=== PATIENT | female | born 2000 | race Caucasian/White ===

== ENCOUNTER → 2018-09-22 | Outpatient (CLI) | payer OTHER ==
--- NOTE | 2018-09-22 13:04 | RADIOLOGY REPORT (SQ) ---
EXAM DESCRIPTION: U/S RETROPERITON (RENAL/AORTA) COMPLETED DATE/TIME: 09/22/2018 12:07 pm REASON FOR STUDY: (N20.0) CALCULUS OF KIDNEY N20.0 CALCULUS OF KIDNEY COMPARISON: None. TECHNIQUE: Dynamic and static grayscale images acquired of the kidneys and bladder and recorded on P ACS. Additional selected color Doppler and spectral images recorded. LIMITATIONS: None. FINDINGS: RIGHT KIDNEY: The right kidney measures 9.3 cm in length, normal size. Normal echogenicit y. No solid or suspicious masses. No hydronephrosis. No calcifications. LEFT KIDNEY: The left kidney measures 10.2 cm in length, normal size. Normal echogenicity. No solid or suspicious masses. No hydronephrosis. No calcifications. BLADDER: The urinary bladder is incompletely distended. OTHER FINDINGS: No other significant finding. IMPRESSION: 1. NORMAL RENAL ULTRASOUND. TECHNICAL DOCUMENTATION: JOB ID: [id number] [employer]- All Rights Reserved Reading location - IP/workstation name: [email or web address]
== END ==
LOC: RAD 11:45
PROVIDERS: ATTEND Internal Medicine
DX: N20.0 Calculus of kidney (principal)
CPT/HCPCS: 76770

== ENCOUNTER → 2018-10-06 | Outpatient (CLI) | payer OTHER ==
[2018-10-06 18:08] LABS: ALANINE AMINOTRANSFERASE 45 U/L (9-52); ALBUMIN 4.5 g/dL (3.5-5.0); ALKALINE PHOSPHATASE 57 U/L (38-126); ANION GAP 11 (5-19); ASPARTATE AMINO TRANSFERASE 34 U/L (14-36); BILIRUBIN,DIRECT 0.3 mg/dL (0.0-0.4); BILIRUBIN,TOTAL 0.4 mg/dL (0.2-1.3); BLOOD UREA NITROGEN 10 mg/dL (7-20); CALCIUM 9.5 mg/dL (8.4-10.2); CARBON DIOXIDE 23 mmol/L (22-30); CHLORIDE 105 mmol/L (98-107); GLUCOSE 81 mg/dL (75-110); POTASSIUM 4.3 mmol/L (3.6-5.0); SODIUM 138.9 mmol/L (137-145); TOTAL PROTEIN 7.5 g/dL (6.3-8.2)
== END ==
LOC: OD 15:55
PROVIDERS: ATTEND Family Medicine Geriatric Medicine
DX: N91.2 Amenorrhea, unspecified (principal); A18.01 Tuberculosis of spine
CPT/HCPCS: 36415; 80053; 84443; 84702

== ENCOUNTER 2018-10-27 12:39 | Inpatient (IN) | payer OTHER ==
[2018-10-27] MEDS ORDERED: ASPIRIN 81 MG TABLET, CHEWABLE PO ONE (14:30)
--- NOTE | 2018-10-27 14:32 | ER Document Report ---
ED Medical Screen (RME) - General Chief Complaint: Chest Pain Stated Complaint: CHEST PAIN Time Seen by Provider: 10/27/18 14:25 Primary Care Provider: EMMANUEL FRANKLIN MD [Primary Care Provider] - Follow up as needed Mode of Arrival: Ambulatory Information source: Patient Notes: This 18-year-old female with history of pots presents emergency department with chest pains that come and go on the left side of her chest. 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 She reports she noted her heart rate very high yesterday up to 180s. She went to see her dye reel operator helper (dr ackerman's office) today because she was having chest pain in the high heart rate and they sent her over here to be worked up. She denies vomiting diarrhea fever. Reports last menstrual period was last week. Reports these with the symptoms she had when she was septic and was placed in the hospital for 6 days. I have greeted and performed a rapid initial assessment of this patient. A comprehensive ED assessment and evaluation of the patient, analysis of test results and completion of the medical decision making process will be conducted by additional ED providers. Dictation of this chart was performed using voice recognition software; therefore, there may be some unintended grammatical errors. TRAVEL OUTSIDE OF THE [place] IN LAST 30 DAYS: No - Related Data Allergies/Adverse Reactions: pomegranate Allergy (Verified 10/27/18 12:51) Physical Exam - Vital signs Vitals: Temp Pulse Resp BP Pulse Ox 98.0 F 94 22 H 113/70 97 10/27/18 13:59 10/27/18 13:59 10/27/18 13:59 10/27/18 13:59 10/27/18 13:59 Course - Vital Signs Vital signs: Temp Pulse Resp BP Pulse Ox 98.0 F 94 22 H 113/70 97 10/27/18 13:59 10/27/18 13:59 10/27/18 13:59 10/27/18 13:59 10/27/18 13:59 Doctor's Discharge - Discharge Referrals: EMMANUEL FRANKLIN MD [Primary Care Provider] - Follow up as needed
--- NOTE | 2018-10-27 15:06 | RADIOLOGY REPORT (SQ) ---
EXAM DESCRIPTION: CHEST 2 VIEWS COMPLETED DATE/TIME: 10/27/2018 2:57 pm REASON FOR STUDY: cp COMPARISON: None. EXAM PARAMETERS: NUMBER OF VIEWS: two views TECHNIQUE: Digital Frontal and Lateral radiographic views of the chest acquired. RADIATION DOSE: NA LIMITATIONS: none FINDINGS: LUNGS AND PLEURA: No opacities, masses or pneumothorax. No pleural effusion. MEDIASTINUM AND HILAR STRUCTURES: No masses or contour abnormalities. HEART AND VASCULAR STRUCTURES: Heart normal size. No evidence for failure. BONES: No acute findings. HARDWARE: None in the chest. OTHER: No other significant finding. IMPRESSION: NO ACUTE RADIOGRAPHIC FINDING IN THE CHEST. TECHNICAL DOCUMENTATION: JOB ID: [id number] [place]-72 2010 [employer]- All Rights Reserved Reading location - IP/workstation name: [email or web address]
[2018-10-27 15:09] LABS: ABSOLUTE BASOPHILS # (AUTO) 0.1 10^3/uL (0.0-0.2); ABSOLUTE EOSINOPHILS # (AUTO) 0.1 10^3/uL (0.0-0.6); ABSOLUTE LYMPHOCYTES (AUTO) 2.4 10^3/uL (0.5-4.7); ABSOLUTE NEUT (AUTO) 4.7 10^3/uL (1.7-8.2); BASOPHILS % (AUTO) 0.7 % (0-2); EOSINOPHILS % (AUTO) 1.4 % (0-6); HEMATOCRIT 38.9 % (36.0-47.0); LYMPHOCYTES % (AUTO) 28.8 % (13-45); MEAN CORPUSCULAR HGB CONC 33.6 g/dL (32.0-36.0); MEAN CORPUSCULAR VOLUME 92 fl (80-97); MONOCYTES % (AUTO) 12.3 % (3-13); PLATELET COUNT 287 10^3/uL (150-450); RED BLOOD COUNT 4.21 10^6/uL (3.72-5.28); RED CELL DISTRIBUTION WIDTH 12.8 % (11.5-14.0); SEGMENTED NEUTROPHILS % (AUTO) 56.8 % (42-78); TOTAL CELLS COUNTED % (AUTO) 100 %; WHITE BLOOD COUNT 8.3 10^3/uL (4.0-10.5)
[2018-10-27 15:25] LABS: ALANINE AMINOTRANSFERASE 69 U/L (9-52); ALKALINE PHOSPHATASE 63 U/L (38-126); ANION GAP 9 (5-19); ASPARTATE AMINO TRANSFERASE 108 U/L (14-36); BILIRUBIN,DIRECT 0.2 mg/dL (0.0-0.4); BILIRUBIN,TOTAL 0.3 mg/dL (0.2-1.3); BLOOD UREA NITROGEN 13 mg/dL (7-20); CARBON DIOXIDE 25 mmol/L (22-30); CHLORIDE 105 mmol/L (98-107); GLUCOSE 87 mg/dL (75-110); POTASSIUM 4.5 mmol/L (3.6-5.0); TOTAL PROTEIN 8.3 g/dL (6.3-8.2)
[2018-10-27 15:48] LABS: CREATINE KINASE 9403 U/L (30-135)
[2018-10-27] MEDS ORDERED: NORMAL SALINE 1000 ML 1,000 ML IV ONE ×2 (18:48→21:28)
[2018-10-27 18:56] LABS: APPEARANCE,URINE SLIGHTLY-CLOUDY; BILIRUBIN,URINE NEGATIVE (NEGATIVE); COLOR,URINE YELLOW; GLUCOSE, URINE NEGATIVE (NEGATIVE); KETONES,URINE NEGATIVE (NEGATIVE); LEUKOCYTE ESTERASE,URINE SMALL (NEGATIVE); NITRITE,URINE NEGATIVE (NEGATIVE); PROTEIN,URINE NEGATIVE (NEGATIVE); URINE SPECIFIC GRAVITY 1.017; UROBILINOGEN,URINE NEGATIVE mg/dL (<2.0)
--- NOTE | 2018-10-27 21:36 | ER Document Report ---
ED General - General Chief Complaint: Chest Pain Stated Complaint: CHEST PAIN Time Seen by Provider: 10/27/18 14:25 Primary Care Provider: EMMANUEL FRANKLIN MD [Primary Care Provider] - Follow up as needed Mode of Arrival: Ambulatory TRAVEL OUTSIDE OF THE [place] IN LAST 30 DAYS: No - HPI Notes: Patient is a 18-year-old female who presents emergency department for evaluation. She states that at work yesterday, she had heart rates as high as 190. She states she knows this because of her apple watch. She does have a history of POTS. She states she has had elevated heart rates in the past. She states that also yesterday she started having chest pains. She states yesterday the pain was squeezing. Today she woke with it again. She really cannot d escribe it for me today. It is not a squeezing or aching, but she cannot really further characterize it. She states is been constant since it came on. She feels occasionally short of breath. She has had some nausea, but no diaphoresis or near syncope. Patient notes that she was diagnosed with a urinary tract infection a few days ago. She states her doctor started her on Augmentin because he wanted to "put me on something stronger." She does have a history of sepsis from a UTI in the past. - Related Data Allergies/Adverse Reactions: pomegranate Allergy (Verified 10/27/18 12:51) Home Medications: Hydrocortisone, Augmentin, Klonopin, Zoloft Past Medical History - General Information source: Patient - Social History Smoking Status: Never Smoker Frequency of alcohol use: None Drug Abuse: None Family History: Hypertension, Malignancy - Testicular cancer in brother Patient has suicidal ideation: No Patient has homicidal ideation: No - Past Medical History Cardiac Medical History: Reports: Other - POTS Renal/ Medical History: Denies: Hx Peritoneal Dialysis Review of Systems - Review of Systems Constitutional: See HPI EENT: No symptoms reported Cardiovascular: See HPI Respiratory: No symptoms reported Gastrointestinal: No symptoms reported Genitourinary: See HPI Female Genitourinary: No symptoms reported Musculoskeletal: No symptoms reported Skin: No symptoms reported Neurological/Psychological: No symptoms reported Physical Exam - Vital signs Vitals: Temp Pulse Resp BP Pulse Ox 98.0 F 94 22 H 113/70 97 10/27/18 13:59 10/27/18 13:59 10/27/18 13:59 10/27/18 13:59 10/27/18 13:59 - Notes Notes: Vital signs reviewed, please refer to chart. Head is normocephalic, atraumatic. Pupils equal round, reactive to light. Neck is supple without meningismus. Heart is regular rate and rhythm. Lungs are clear to auscultation bilaterally. Chest wall is tender to palpation. Abdomen is soft, nontender, normoactive bowel sounds throughout. Extremities without cyanosis, clubbing. Posterior calves are nontender. Peripheral pulses are equal. Skin is warm and dry. Patient is awake, alert, neurological exam is nonfocal. Course - Re-evaluation Re-evalutation: 10/27/18 21:35 Presents emergency department for evaluation. Laboratory investigations, EKG is ordered through triage. Patient is labs did reveal a markedly elevated CPK. She was given IV fluids. Despite her elevated CPK, her creatinine is normal at this time. She also has a normal troponin. She was on the monitor and her heart rate was in the 70s and 80s throughout the course of her stay. Will contact hospitalist for admission. 10/27/18 22:[address] Vick. He did ask that a CPK be ordered. Patient was given aspirin on arrival. She is placed on IV fluids. We will admit her for further care. - Vital Signs Vital signs: Temp Pulse Resp BP Pulse Ox 98.0 F 94 18 104/69 98 10/27/18 13:59 10/27/18 13:59 10/27/18 22:01 10/27/18 22:01 10/27/18 22:01 - Laboratory Result Diagrams: 10/27/18 14:51 10/27/18 14:51 Laboratory results interpreted by me: 10/27/18 10/27/18 14:30 14:51 Creatinine 0.45 L AST 108 H ALT 69 H Creatine Kinase 9403 H Total Protein 8.3 H Ur Leukocyte Esterase SMALL H Urine Ascorbic Acid 40 H - Diagnostic Test Radiology reviewed: Reports reviewed Radiology results interpreted by me: 10/27/18 21:36 Chest X-Ray 10/27/18 14:31 IMPRESSION: NO ACUTE RADIOGRAPHIC FINDING IN THE CHEST. - EKG Interpretation by Me Additional EKG results interpreted by me: 10/27/18 21:36 Sinus mechanism with a rate of 82 bpm. Normal axis and intervals, no acute ST changes concerning for ischemia or infarction. Discharge - Discharge Clinical Impression: Chest pain, Elevated CPK Condition: Stable Disposition: ADMITTED OBSERVATION Admitting Provider: Nava (Hospitalist) Unit Admitted: Telemetry Referrals: EMMANUEL FRANKLIN MD [Primary Care Provider] - Follow up as needed
[2018-10-27] MEDS: NORMAL SALINE 1000 ML 1,000 ML IV PRN ×2 (21:45→23:00)
[2018-10-27 23:16] LABS: URINE AMPHETAMINES SCREEN NEGATIVE; URINE BARBITURATES SCREEN NEGATIVE; URINE BENZODIAZEPINES SCREEN NEGATIVE; URINE COCAINE SCREEN NEGATIVE; URINE MARIJUANA (THC) SCREEN NEGATIVE; URINE METHADONE SCREEN NEGATIVE; URINE PHENCYCLIDINE SCREEN NEGATIVE
[2018-10-27] MEDS ORDERED: ZOLPIDEM TARTRATE 5 MG TABLET PO PRN (23:19)
[2018-10-27] MEDS ORDERED: ONDANSETRON HCL INJ/PF 4 MG/2 ML SDV IV PRN (23:19)
[2018-10-27] MEDS ORDERED: MAG HYDROX/AL HYDROX/SIMETH SUSP 30 ML UDCUP PO PRN (23:19)
[2018-10-27] MEDS ORDERED: MAGNESIUM HYDROXIDE SUSP 30 ML UDCUP PO PRN (23:19)
[2018-10-27] MEDS ORDERED: METOPROLOL TARTRATE PF/INJ 5 MG/5 ML SDV IV PRN (23:23)
[2018-10-27] MEDS ORDERED: ACETAMINOPHEN 325 MG TABLET PO PRN (23:23)
[2018-10-27] MEDS ORDERED: IBUPROFEN 800 MG TABLET PO PRN (23:23)
[2018-10-27] MEDS ORDERED: MORPHINE SULFATE 10 MG/ML INJ IV PRN ×4 (23:23→23:59)
[2018-10-28 00:35] LABS: TROPONIN I < 0.012 ng/mL
--- NOTE | 2018-10-28 04:07 | PDOC H&P ---
History of Present Illness Admission Date/PCP: 10/27/18 22:30 EMMANUEL FRANKLIN MD Patient complains of: Chest pain History of Present Illness: ELIZA BONDS is a 18 year old female who presented to the emergency room with a 2-day history of chest pain. She admits waxing and waning pains in her left chest beginning yesterday and continuing today. The pain has been continuous but variable since onset and is described as a squeezing tightness in her chest at its worst and a vague nondescript sensation at the present time. The pain does not radiate but has been accompanied by variable dyspnea and nausea. 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 She has been experiencing episodic rapid heart rates in the 180s and 190s consistent with her POTS disease while working in the heat. She was seen at her cardiologists (Dr. Quach) office today and was sent to the hospital for further evaluation. She admits a prior similar episode when she had sepsis in the past. She has not identified any other aggravating or ameliorating factors for her chest pain. In the ER she was found to have a normal troponin I and EKG which did not reflect myocardial ischemia or injury. She was noted to have an elevated CPK with a CPK-MB currently pending. She was subsequently admitted to observation status for further evaluation and treatment. Dr. Quach will be consulted. Past Medical History Cardiac Medical History: Reports: Other - POTS Denies: Atrial Fibrillation, Congestive Heart Failure, Coronary Artery Disease, Hypertension Pulmonary Medical History: Denies: Asthma, Chronic Obstructive Pulmonary Disease (COPD) EENT Medical History: Denies: Cataracts, Ears - Hearing aids Neurological Medical History: Reports: Other - Patient claims spina bifida Denies: Multiple Sclerosis, Seizures Endocrine Medical History: Denies: Diabetes Mellitus Type 1, Hyperthyroidism, Hypothyroidism Renal/ Medical History: Reports: Nephrolithiasis, Other - Urinary tract infections recently finished a course of antibiotics. Denies: Chronic Kidney Disease Malignancy Medical History: Reports: None GI Medical History: Denies: Cirrhosis, Crohn's Disease, Hepatitis, Ulcerative Colitis Musculoskeltal Medical History: Denies: Arthritis, Fibromyalgia, Gout Skin Medical History: Denies: Eczema, Psoriasis Psychiatric Medical History: Denies: Alcohol Dependency, Substance Abuse, Tobacco Dependency Traumatic Medical History: Reports: None Hematology: Denies: Anemia, Bleeding Tendencies Infectious Medical History: Reports: None Past Surgical History Past Surgical History: Reports: None Social History Information Source: Patient Lives with: Spouse/Significant other Smoking Status: Never Smoker Frequency of Alcohol Use: None Hx Recreational Drug Use: No Drugs: None Hx Prescription Drug Abuse: No - Advance Directive Resuscitation Status: Full Code Surrogate healthcare decision maker:: Maryann Lowe Family History Family History: Hypertension, Malignancy - Testicular cancer in brother Parental Family History Reviewed: Yes Children Family History Reviewed: No Sibling(s) Family History Reviewed.: Yes Medication/Allergy Allergies/Adverse Reactions: pomegranate Allergy (Verified 10/27/18 12:51) Review of Systems Constitutional: ABSENT: chills, fever(s) Eyes: ABSENT: visual disturbances, other - Eye pain Ears: ABSENT: hearing changes, other - Ear pain Nose, Mouth, and Throat: ABSENT: mouth pain, sore throat Cardiovascular: PRESENT: as per HPI, chest pain, dyspnea on exertion, palpitations. ABSENT: edema, orthropnea Respiratory: PRESENT: dyspnea. ABSENT: cough Gastrointestinal: PRESENT: nausea. ABSENT: abdominal pain, constipation, diarrhea, vomiting Genitourinary: ABSENT: dysuria, hematuria Musculoskeletal: ABSENT: back pain, joint swelling, muscle weakness Integumentary: ABSENT: diaphoresis, pruritus, rash Neurological: ABSENT: confusion, convulsions, focal weakness, memory loss, syncope Psychiatric: ABSENT: anxiety, depression Endocrine: ABSENT: cold intolerance, heat intolerance Hematologic/Lymphatic: ABSENT: easy bleeding, easy bruising Physical Exam Vital Signs: Temp Pulse Resp BP Pulse Ox 98.0 F 94 18 104/69 98 10/27/18 13:59 10/27/18 13:59 10/27/18 22:01 10/27/18 22:01 10/27/18 22:01 Intake & Output 10/25/18 10/26/18 10/27/18 23:59 23:59 23:59 Intake Total 1000 Balance 1000 Weight 58.5 kg General appearance: PRESENT: no acute distress, cooperative Head exam: PRESENT: atraumatic, normocephalic Eye exam: PRESENT: conjunctiva pink. ABSENT: conjunctival injection, scleral icterus Ear exam: PRESENT: normal external ear exam. ABSENT: bleeding, drainage Mouth exam: PRESENT: dry mucosa, neck supple Neck exam: ABSENT: JVD, thyromegaly, tracheal deviation Respiratory exam: PRESENT: clear to auscultation pranay, symmetrical, unlabored Cardiovascular exam: PRESENT: RRR. ABSENT: clicks, gallop, rubs Pulses: PRESENT: normal radial pulses, normal dorsalis pedis pul Vascular exam: PRESENT: normal capillary refill. ABSENT: pallor GI/Abdominal exam: PRESENT: normal bowel sounds, soft Rectal exam: PRESENT: deferred Extremities exam: ABSENT: joint swelling, pedal edema, tenderness Musculoskeletal exam: PRESENT: full ROM, normal inspection Neurological exam: PRESENT: alert, oriented to person, oriented to place, oriented to time, oriented to situation, CN II-XII grossly intact. ABSENT: motor sensory deficit Psychiatric exam: PRESENT: appropriate affect, normal mood Skin exam: PRESENT: dry, intact, warm. ABSENT: jaundice, rash, urticaria Results Laboratory Results: 10/27/18 14:51 10/27/18 14:51 10/27/18 10/27/18 10/27/18 14:30 14:51 14:51 WBC 8.3 RBC 4.21 Hgb 13.0 Hct 38.9 MCV 92 MCH 31.0 MCHC 33.6 RDW 12.8 Plt Count 287 Seg Neutrophils % 56.8 Lymphocytes % 28.8 Monocytes % 12.3 Eosinophils % 1.4 Basophils % 0.7 Absolute Neutrophils 4.7 Absolute Lymphocytes 2.4 Absolute Monocytes 1.0 Absolute Eosinophils 0.1 Absolute Basophils 0.1 Sodium 138.9 Potassium 4.5 Chloride 105 Carbon Dioxide 25 Anion Gap 9 BUN 13 Creatinine 0.45 L Est GFR ( Amer) > 60 Est GFR (Non-Af Amer) > 60 Glucose 87 Calcium 10.0 Total Bilirubin 0.3 AST 108 H ALT 69 H Alkaline Phosphatase 63 Total Protein 8.3 H Albumin 5.0 Lipase 79.2 Urine Color YELLOW Urine Appearance SLIGHTLY-CLOUDY Urine pH 7.0 Ur Specific [place] 1.017 Urine Protein NEGATIVE Urine Glucose (UA) NEGATIVE Urine Ketones NEGATIVE Urine Blood NEGATIVE Urine Nitrite NEGATIVE Ur Leukocyte Esterase SMALL H Urine WBC (Auto) 3 Urine RBC (Auto) 4 10/27/18 10/27/18 14:51 14:51 Creatine Kinase 9403 H Troponin I < 0.012 Impressions: Chest X-Ray 10/27/18 14:31 IMPRESSION: NO ACUTE RADIOGRAPHIC FINDING IN THE CHEST. Assessment and Plan - Diagnosis (1) Chest pain Qualifiers: Chest pain type: unspecified Qualified Code(s): R07.9 - Chest pain, unspecified Is this a current diagnosis for this admission?: Yes Plan: Patient will be admitted to observation placed on telemetry with a consultation for Dr. Quach's services. Additionally she will have serial cardiac enzymes and EKGs performed to evaluate her cardiac status. Further evaluation will be directed by Dr. Quach. Patient will be able to use morphine sulfate 2 to 4 mg IV every 2 hours on a as needed basis per sliding scale if needed. (2) Elevated CPK Is this a current diagnosis for this admission?: Yes Plan: Patient's elevated CPK and mild elevation of other muscle/liver enzymes might indicate a heat related or exercise related strain although the patient has no muscular symptoms of aches and pains other than her chest pain. These enzymes will be repeated on a serial basis for further evaluation. (3) POTS (postural orthostatic tachycardia syndrome) Is this a current diagnosis for this admission?: Yes Plan: Patient be continued on her usual medication. Dr. Quach has been consulted and will manage any changes to her regimen. (4) Pyuria Is this a current diagnosis for this admission?: Yes Plan: The patient will have a urine culture performed, with treatment based upon her culture results. - Time Time Spent with patient: 25-34 minutes Anticipated discharge: Home Within: within 48 hours - Inpatient Certification Based on my medical assessment, after consideration of the patient's c omorbidities, presenting symptoms, or acuity I expect that the services needed warrant INPATIENT care.: No I certify that my determination is in accordance with my understanding of Medicare's requirements for reasonable and necessary INPATIENT services [42 CFR 412.3e].: No Medical Necessity: Need Close Monitoring Due to Risk of Patient Decompensation, Need For Continuous Telemetry Monitoring
[2018-10-28 06:10] LABS: HEMATOCRIT 33.6 % (36.0-47.0); HEMOGLOBIN 11.4 g/dL (12.0-15.5); MEAN CORPUSCULAR HEMOGLOBIN 31.6 pg (27.0-33.4); MEAN CORPUSCULAR HGB CONC 33.9 g/dL (32.0-36.0); MEAN CORPUSCULAR VOLUME 93 fl (80-97); PLATELET COUNT 234 10^3/uL (150-450); RED BLOOD COUNT 3.61 10^6/uL (3.72-5.28); RED CELL DISTRIBUTION WIDTH 12.8 % (11.5-14.0); WHITE BLOOD COUNT 7.6 10^3/uL (4.0-10.5)
[2018-10-28 06:16] LABS: ALANINE AMINOTRANSFERASE 53 U/L (9-52); ALBUMIN 3.4 g/dL (3.5-5.0); ALKALINE PHOSPHATASE 45 U/L (38-126); ANION GAP 10 (5-19); ASPARTATE AMINO TRANSFERASE 105 U/L (14-36); BILIRUBIN,DIRECT 0.1 mg/dL (0.0-0.4); BILIRUBIN,TOTAL 0.1 mg/dL (0.2-1.3); BLOOD UREA NITROGEN 12 mg/dL (7-20); CALCIUM 8.5 mg/dL (8.4-10.2); CARBON DIOXIDE 20 mmol/L (22-30); CHLORIDE 111 mmol/L (98-107); GLUCOSE 89 mg/dL (75-110); POTASSIUM 4.1 mmol/L (3.6-5.0); TOTAL PROTEIN 5.9 g/dL (6.3-8.2)
[2018-10-28 06:32] LABS: TROPONIN I < 0.012 ng/mL
[2018-10-28 06:33] LABS: FREE T3 3.93 pg/mL (2.77-5.27); FREE T4 (FREE THYROXINE) 0.88 ng/dL (0.78-2.19)
[2018-10-28 06:47] LABS: THYROID STIMULATING HORMONE 1.67 uIU/mL (0.47-4.68)
[2018-10-28 07:05] LABS: CREATINE KINASE 8394 U/L (30-135)
[2018-10-28] MEDS: HEPARIN SOD (PORCINE) 5,000 UNIT/ML 1 ML VIAL SUBCUT SCH ×3 (10:26→21:17)
[2018-10-28] MEDS: RINGERS SOLUTION,LACTATED 1,000 ML IV PRN ×2 (12:09→20:29)
[2018-10-28] MEDS: FAMOTIDINE 20 MG TABLET PO SCH ×2 (12:09→21:17)
[2018-10-28] MEDS: DOCUSATE SODIUM 100 MG CAPSULE PO SCH ×2 (12:09→17:59)
[2018-10-28 13:01] LABS: TROPONIN I < 0.012 ng/mL
--- NOTE | 2018-10-28 13:03 | PDOC PROGRESS REPORT ---
Subjective Progress Note for:: 10/28/18 Subjective:: Chest pain. Patient was admitted through the emergency department yesterday with chest pain. So far EKGs and cardiac enzymes has been negative. Patient has noted some generalized body ache. She has also noted significant discomfort in the muscles on the inside aspect of her thighs. Patient claims that she exercised and worked in the gym, doing some exercise strengthening the tight muscles. Patient claims that she noted tachycardia with heart rate up to 180. She had also noted some intermittent chest pains. Patient presented to the office and the office staff told her to come to the emergency room. She was subsequently admitted. She was noted to have rhabdomyolysis but negative troponin I. Reason For Visit: CHEST PAIN Physical Exam Vital Signs: Temp Pulse Resp BP Pulse Ox 98.3 F 93 16 108/66 100 10/28/18 09:41 10/28/18 09:41 10/28/18 09:41 10/28/18 09:41 10/28/18 09:41 Intake & Output 10/27/18 10/28/18 10/29/18 06:59 06:59 06:59 Intake Total 3000 Balance 3000 Weight 58.5 kg 59.1 kg Exam: GENERAL: well-nourished and in no acute distress. Alert and oriented x3 HEAD: Atraumatic, normocephalic. EYES: FIDE, sclera anicteric, conjunctiva are normal. ENT: Moist mucous membranes. No oral ulcerations or bleeding gums noted. No obvious ear, nose or throat abnormalities noted. NECK: supple without lymphadenopathy. Trachea is central. No cervical or axillary lymphadenopathy noted. Carotids are 2+, JVD WNL LUNGS: Breath sounds clear bilaterally. No wheezes rales or rhonchi noted. No significant dullness noted on percussion. CHEST: Palpation of the chest wall shows no significant chest wall tenderness. 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 ABDOMEN: Soft, no significant tenderness appreciated, normoactive bowel sounds. No guarding, no rebound. No rigidity noted . No masses appreciated. EXTREMITIES: Pedal pulses are 1-2+, no calf tenderness noted. No clubbing or cyanosis. negative pedal edema noted NEUROLOGICAL: Focused neurological exam showed no significant neurologic deficit. Normal speech, no focal weakness appreciated. PSYCH: Normal mood, normal affect. Judgment and insight within normal limits. SKIN: No significant ecchymosis, skin is noted to be warm. MUSCULOSKELETAL EXAM: No significant acute joint swelling noted. Results Laboratory Results: 10/28/18 05:40 10/28/18 05:40 10/27/18 10/27/18 10/27/18 14:30 14:51 14:51 WBC 8.3 RBC 4.21 Hgb 13.0 Hct 38.9 MCV 92 MCH 31.0 MCHC 33.6 RDW 12.8 Plt Count 287 Seg Neutrophils % 56.8 Lymphocytes % 28.8 Monocytes % 12.3 Eosinophils % 1.4 Basophils % 0.7 Absolute Neutrophils 4.7 Absolute Lymphocytes 2.4 Absolute Monocytes 1.0 Absolute Eosinophils 0.1 Absolute Basophils 0.1 Sodium 138.9 Potassium 4.5 Chloride 105 Carbon Dioxide 25 Anion Gap 9 BUN 13 Creatinine 0.45 L Est GFR ( Amer) > 60 Est GFR (Non-Af Amer) > 60 Glucose 87 Calcium 10.0 Magnesium Total Bilirubin 0.3 AST 108 H ALT 69 H Alkaline Phosphatase 63 Total Protein 8.3 H Albumin 5.0 Lipase 79.2 TSH Free T4 Free T3 pg/mL Urine Color YELLOW Urine Appearance SLIGHTLY-CLOUDY Urine pH 7.0 Ur Specific [place] 1.017 Urine Protein NEGATIVE Urine Glucose (UA) NEGATIVE Urine Ketones NEGATIVE Urine Blood NEGATIVE Urine Nitrite NEGATIVE Ur Leukocyte Esterase SMALL H Urine WBC (Auto) 3 Urine RBC (Auto) 4 10/28/18 10/28/18 10/28/18 05:40 05:40 05:40 WBC 7.6 RBC 3.61 L Hgb 11.4 L Hct 33.6 L MCV 93 MCH 31.6 MCHC 33.9 RDW 12.8 Plt Count 234 Seg Neutrophils % Lymphocytes % Monocytes % Eosinophils % Basophils % Absolute Neutrophils Absolute Lymphocytes Absolute Monocytes Absolute Eosinophils Absolute Basophils Sodium 140.9 Potassium 4.1 Chloride 111 H Carbon Dioxide 20 L Anion Gap 10 BUN 12 Creatinine 0.46 L Est GFR ( Amer) > 60 Est GFR (Non-Af Amer) > 60 Glucose 89 Calcium 8.5 Magnesium 1.9 Total Bilirubin 0.1 L AST 105 H ALT 53 H Alkaline Phosphatase 45 Total Protein 5.9 L Albumin 3.4 L Lipase TSH 1.67 Free T4 0.88 Free T3 pg/mL 3.93 Urine Color Urine Appearance Urine pH Ur Specific [place] Urine Protein Urine Glucose (UA) Urine Ketones Urine Blood Urine Nitrite Ur Leukocyte Esterase Urine WBC (Auto) Urine RBC (Auto) 10/27/18 10/27/18 10/27/18 14:51 14:51 14:51 Creatine Kinase 9403 H CK-MB (CK-2) 24.00 H Troponin I < 0.012 10/27/18 10/27/18 10/28/18 23:47 23:47 05:40 Creatine Kinase 9234 H 8394 H CK-MB (CK-2) 16.50 H Troponin I < 0.012 10/28/18 05:40 Creatine Kinase CK-MB (CK-2) 12.10 H Troponin I < 0.012 EKG Comments: Sinus rhythm, no acute ST-T wave changes noted. Impressions: Chest X-Ray 10/27/18 14:31 IMPRESSION: NO ACUTE RADIOGRAPHIC FINDING IN THE CHEST. Assessment & Plan - Diagnosis (1) Chest pain Qualifiers: Chest pain type: unspecified Qualified Code(s): R07.9 - Chest pain, unspecified Is this a current diagnosis for this admission?: Yes (2) Elevated CPK Is this a current diagnosis for this admission?: Yes (3) POTS (postural orthostatic tachycardia syndrome) Is this a current diagnosis for this admission?: Yes (4) Pyuria Is this a current diagnosis for this admission?: Yes - Notes Notes: Chest pain felt to be noncardiac especially given paucity of risk factors and atypical nature. Patient cardiac enzymes and EKG are also negative. Will review office work-up on this patient. Patient at the medical problems are being well managed. I feel that patient could be discharged from cardiac standpoint with further evaluation planned as an outpatient. As regards POTS syndrome, Inderal is probably the best medication. Will consider tilt table test as an outpatient. This can be arranged through my office. - Time Time with patient: Greater than 35 minutes
[2018-10-28] MEDS ORDERED: POTASSIUM CLAV PO SCH (14:45)
[2018-10-28] MEDS ORDERED: AMOXICILLIN PO SCH (14:45)
[2018-10-28] MEDS ORDERED: [UNRECOGNIZED DRUG - OTHER] PO SCH (14:45)
[2018-10-28] MEDS: PROPRANOLOL HCL 10 MG TABLET PO SCH ×3 (16:11→21:08)
[2018-10-28] MEDS: SERTRALINE HCL 50 MG TABLET PO SCH (16:11)
[2018-10-28] MEDS: AMOXICILLIN TR/POT CLAVULANATE 500-125 MG TAB PO SCH ×2 (16:13→21:17)
--- NOTE | 2018-10-28 17:49 | PDOC PROGRESS REPORT ---
Subjective Progress Note for:: 10/28/18 Subjective:: ELIZA BONDS is a 18 year old female who presented to the emergency room with a 2-day history of chest pain. She admits waxing and waning pains in her left chest beginning yesterday and continuing today. The pain has been continuous but variable since onset and is described as a squeezing tightness in her chest at its worst and a vague nondescript sensation at the present time. The pain does not radiate but has been accompanied by variable dyspnea and nausea. 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 She has been experiencing episodic rapid heart rates in the 180s and 190s consistent with her POTS disease while working in the heat. She was seen at her cardiologists (Dr. Quach) office today and was sent to the hospital for further evaluation. She admits a prior similar episode when she had sepsis in the past. She has not identified any other aggravating or ameliorating factors for her chest pain. In the ER she was found to have a normal troponin I and EKG which did not reflect myocardial ischemia or injury. She was noted to have an elevated CPK with a CPK-MB currently pending. She was subsequently admitted to observation status for further evaluation and treatment. Dr. Quach will be consulted. Reason For Visit: CHEST PAIN Physical Exam Vital Signs: Temp Pulse Resp BP Pulse Ox 98.2 F 83 12 103/57 L 98 10/28/18 15:12 10/28/18 15:12 10/28/18 15:12 10/28/18 15:12 10/28/18 15:12 Intake & Output 10/27/18 10/28/18 10/29/18 06:59 06:59 06:59 Intake Total 3000 1000 Balance 3000 1000 Weight 58.5 kg 59.1 kg General appearance: PRESENT: no acute distress, well-developed, well-nourished Head exam: PRESENT: atraumatic, normocephalic Eye exam: PRESENT: conjunctiva pink, EOMI, PERRLA. ABSENT: scleral icterus Ear exam: PRESENT: normal external ear exam Mouth exam: PRESENT: moist, tongue midline Neck exam: ABSENT: carotid bruit, JVD, lymphadenopathy, thyromegaly Respiratory exam: PRESENT: clear to auscultation pranay. ABSENT: rales, rhonchi, wheezes Cardiovascular exam: PRESENT: RRR. ABSENT: diastolic murmur, rubs, systolic murmur Pulses: PRESENT: normal dorsalis pedis pul Vascular exam: PRESENT: normal capillary refill GI/Abdominal exam: PRESENT: normal bowel sounds, soft. ABSENT: distended, guarding, mass, organolmegaly, rebound, tenderness Rectal exam: PRESENT: deferred Extremities exam: PRESENT: full ROM. ABSENT: calf tenderness, clubbing, pedal edema Neurological exam: PRESENT: alert, awake, oriented to person, oriented to place, oriented to time, oriented to situation, CN II-XII grossly intact. ABSENT: motor sensory deficit Psychiatric exam: PRESENT: appropriate affect, normal mood. ABSENT: homicidal ideation, suicidal ideation Skin exam: PRESENT: dry, intact, warm. ABSENT: cyanosis, rash Results Laboratory Results: 10/28/18 05:40 10/28/18 05:40 10/27/18 10/28/18 10/28/18 14:30 05:40 05:40 WBC 7.6 RBC 3.61 L Hgb 11.4 L Hct 33.6 L MCV 93 MCH 31.6 MCHC 33.9 RDW 12.8 Plt Count 234 Sodium 140.9 Potassium 4.1 Chloride 111 H Carbon Dioxide 20 L Anion Gap 10 BUN 12 Creatinine 0.46 L Est GFR ( Amer) > 60 Est GFR (Non-Af Amer) > 60 Glucose 89 Calcium 8.5 Magnesium 1.9 Total Bilirubin 0.1 L AST 105 H ALT 53 H Alkaline Phosphatase 45 Total Protein 5.9 L Albumin 3.4 L TSH Free T4 Free T3 pg/mL Urine Color YELLOW Urine Appearance SLIGHTLY-CLOUDY Urine pH 7.0 Ur Specific Davis 1.017 Urine Protein NEGATIVE Urine Glucose (UA) NEGATIVE Urine Ketones NEGATIVE Urine Blood NEGATIVE Urine Nitrite NEGATIVE Ur Leukocyte Esterase SMALL H Urine WBC (Auto) 3 Urine RBC (Auto) 4 10/28/18 05:40 WBC RBC Hgb Hct MCV MCH MCHC RDW Plt Count Sodium Potassium Chloride Carbon Dioxide Anion Gap BUN Creatinine Est GFR ( Amer) Est GFR (Non-Af Amer) Glucose Calcium Magnesium Total Bilirubin AST ALT Alkaline Phosphatase Total Protein Albumin TSH 1.67 Free T4 0.88 Free T3 pg/mL 3.93 Urine Color Urine Appearance Urine pH Ur Specific Davis Urine Protein Urine Glucose (UA) Urine Ketones Urine Blood Urine Nitrite Ur Leukocyte Esterase Urine WBC (Auto) Urine RBC (Auto) 10/27/18 10/27/18 10/27/18 14:51 14:51 14:51 Creatine Kinase 9403 H CK-MB (CK-2) 24.00 H Troponin I < 0.012 10/27/18 10/27/18 10/28/18 23:47 23:47 05:40 Creatine Kinase 9234 H 8394 H CK-MB (CK-2) 16.50 H Troponin I < 0.012 10/28/18 10/28/18 10/28/18 05:40 12:12 12:12 Creatine Kinase 66219 H CK-MB (CK-2) 12.10 H 12.50 H Troponin I < 0.012 < 0.012 Impressions: Chest X-Ray 10/27/18 14:31 IMPRESSION: NO ACUTE RADIOGRAPHIC FINDING IN THE CHEST. Assessment and Plan - Diagnosis (1) Rhabdomyolysis Qualifiers: Rhabdomyolysis type: non-traumatic Qualified Code(s): M62.82 - Rhabdomyolysis Is this a current diagnosis for this admission?: Yes Plan: Continue IV fluids. Trend CK. Monitor kidney function. (2) UTI (urinary tract infection) Is this a current diagnosis for this admission?: Yes Plan: Partially treated as outpatient. Restart home meds. (3) History of panic attacks Is this a current diagnosis for this admission?: Yes Plan: Restart home meds. (4) Depression Is this a current diagnosis for this admission?: Yes Plan: Denies any suicidal or homicidal ideation. Restart home meds. (5) Elevated CPK Is this a current diagnosis for this admission?: Yes Plan: Patient's elevated CPK and mild elevation of other muscle/liver enzymes might indicate a heat related or exercise related strain although the patient has no muscular symptoms of aches and pains other than her chest pain. These enzymes will be repeated on a serial basis for further evaluation. (6) POTS (postural orthostatic tachycardia syndrome) Is this a current diagnosis for this admission?: Yes Plan: Patient be continued on her usual medication. Dr. Quach has been consulted and will manage any changes to her regimen.
--- NOTE | 2018-10-28 19:11 | EKG REPORT ---
SEVERITY:- NORMAL ECG - SINUS RHYTHM : Confirmed by: Rodrigo Horan MD 28-Oct-2018 19:10:46
--- NOTE | 2018-10-28 19:11 | EKG REPORT ---
SEVERITY:- NORMAL ECG - SINUS RHYTHM : Confirmed by: Rodrigo Horan MD 28-Oct-2018 19:10:35
[2018-10-28] MEDS: CLONAZEPAM 1 MG TABLET PO PRN (19:14)
[2018-10-28] MEDS: FLUDROCORTISONE ACETATE 0.1 MG TABLET PO SCH ×2 (19:14→21:23)
[2018-10-29] MEDS: PROPRANOLOL HCL 10 MG TABLET PO SCH ×3 (05:16→21:36)
[2018-10-29] MEDS: AMOXICILLIN TR/POT CLAVULANATE 500-125 MG TAB PO SCH (05:57)
[2018-10-29] MEDS: HEPARIN SOD (PORCINE) 5,000 UNIT/ML 1 ML VIAL SUBCUT SCH ×3 (05:58→21:29)
[2018-10-29 07:45] LABS: ANION GAP 7 (5-19); BLOOD UREA NITROGEN 8 mg/dL (7-20); CALCIUM 9.2 mg/dL (8.4-10.2); CARBON DIOXIDE 26 mmol/L (22-30); CHLORIDE 105 mmol/L (98-107); GLUCOSE 84 mg/dL (75-110); POTASSIUM 3.9 mmol/L (3.6-5.0)
[2018-10-29 08:21] LABS: CREATINE KINASE 7567 U/L (30-135)
[2018-10-29] MEDS: FLUDROCORTISONE ACETATE 0.1 MG TABLET PO SCH ×2 (09:50→21:30)
[2018-10-29] MEDS: FAMOTIDINE 20 MG TABLET PO SCH ×2 (09:53→21:30)
[2018-10-29] MEDS: SERTRALINE HCL 50 MG TABLET PO SCH (09:53)
[2018-10-29] MEDS: DOCUSATE SODIUM 100 MG CAPSULE PO SCH ×2 (09:53→17:13)
[2018-10-29] MEDS: CLONAZEPAM 1 MG TABLET PO PRN ×2 (09:53→21:38)
[2018-10-29] MEDS ORDERED: BENZOCAINE/MENTHOL SORE THROAT LOZENGE BUCCAL PRN (14:17)
[2018-10-29] MEDS ORDERED: BENZOCAINE/MENTHOL SORE THROAT LOZENGE BUCCAL ONE (14:17)
[2018-10-29] MEDS ORDERED: CEPHALEXIN 500 MG CAPSULE PO ONE (15:00)
[2018-10-29] MEDS: NORMAL SALINE 1000 ML 1,000 ML IV PRN ×2 (17:13→21:28)
--- NOTE | 2018-10-29 18:16 | PDOC PROGRESS REPORT ---
Subjective Progress Note for:: 10/29/18 Subjective:: ELIZA BONDS is a 18 year old female who presented to the emergency room with a 2-day history of chest pain. She admits waxing and waning pains in her left chest beginning yesterday and continuing today. The pain has been continuous but variable since onset and is described as a squeezing tightness in her chest at its worst and a vague nondescript sensation at the present time. The pain does not radiate but has been accompanied by variable dyspnea and nausea. 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 She has been experiencing episodic rapid heart rates in the 180s and 190s consistent with her POTS disease while working in the heat. She was seen at her cardiologists (Dr. Quach) office today and was sent to the hospital for further evaluation. She admits a prior similar episode when she had sepsis in the past. She has not identified any other aggravating or ameliorating factors for her chest pain. In the ER she was found to have a normal troponin I and EKG which did not reflect myocardial ischemia or injury. She was noted to have an elevated CPK with a CPK-MB currently pending. She was subsequently admitted to observation status for further evaluation and treatment. Dr. Quach will be consulted. 10/29/2018. No acute events overnight, patient complains of generalized and sore muscles, patient ambulatory, p.o. tolerant, having normal bowel and bladder movements. He denies any fever, shortness of breath, chest pain, nausea, vomiting, diarrhea, constipation or any urinary symptoms. Reason For Visit: RHABDOMYOLYSIS,POTS,CHEST PAIN,ELEVATED CPK Physical Exam Vital Signs: Temp Pulse Resp BP Pulse Ox 99.2 F 128 H 16 106/71 98 10/29/18 12:02 10/29/18 14:00 10/29/18 12:02 10/29/18 12:02 10/29/18 12:02 Intake & Output 10/28/18 10/29/18 10/30/18 06:59 06:59 06:59 Intake Total 3000 3650 120 Balance 3000 3650 120 Weight 58.5 kg 59.2 kg General appearance: PRESENT: no acute distress, well-developed, well-nourished Head exam: PRESENT: atraumatic, normocephalic Eye exam: PRESENT: conjunctiva pink, EOMI, PERRLA. ABSENT: scleral icterus Ear exam: PRESENT: normal external ear exam Mouth exam: PRESENT: moist, tongue midline Neck exam: ABSENT: carotid bruit, JVD, lymphadenopathy, thyromegaly Respiratory exam: PRESENT: clear to auscultation pranay. ABSENT: rales, rhonchi, wheezes Cardiovascular exam: PRESENT: RRR. ABSENT: diastolic murmur, rubs, systolic murmur Pulses: PRESENT: normal dorsalis pedis pul Vascular exam: PRESENT: normal capillary refill GI/Abdominal exam: PRESENT: normal bowel sounds, soft. ABSENT: distended, guarding, mass, organolmegaly, rebound, tenderness Rectal exam: PRESENT: deferred Extremities exam: PRESENT: full ROM. ABSENT: calf tenderness, clubbing, pedal edema Neurological exam: PRESENT: alert, awake, oriented to person, oriented to place, oriented to time, oriented to situation, CN II-XII grossly intact. ABSENT: motor sensory deficit Psychiatric exam: PRESENT: appropriate affect, normal mood. ABSENT: homicidal ideation, suicidal ideation Skin exam: PRESENT: dry, intact, warm. ABSENT: cyanosis, rash Results Laboratory Results: 10/28/18 05:40 10/29/18 06:34 10/29/18 06:34 Sodium 138.2 Potassium 3.9 Chloride 105 Carbon Dioxide 26 Anion Gap 7 BUN 8 Creatinine 0.45 L Est GFR ( Amer) > 60 Est GFR (Non-Af Amer) > 60 Glucose 84 Calcium 9.2 10/27/18 10/27/18 10/27/18 14:51 14:51 14:51 Creatine Kinase 9403 H CK-MB (CK-2) 24.00 H Troponin I < 0.012 10/27/18 10/27/18 10/28/18 23:47 23:47 05:40 Creatine Kinase 9234 H 8394 H CK-MB (CK-2) 16.50 H Troponin I < 0.012 10/28/18 10/28/18 10/28/18 05:40 12:12 12:12 Creatine Kinase 84856 H CK-MB (CK-2) 12.10 H 12.50 H Troponin I < 0.012 < 0.012 10/29/18 06:34 Creatine Kinase 7567 H CK-MB (CK-2) Troponin I Impressions: Chest X-Ray 10/27/18 14:31 IMPRESSION: NO ACUTE RADIOGRAPHIC FINDING IN THE CHEST. Assessment and Plan - Diagnosis (1) Rhabdomyolysis Qualifiers: Rhabdomyolysis type: non-traumatic Qualified Code(s): M62.82 - Rhabdomyolysis Is this a current diagnosis for this admission?: Yes Plan: Nontraumatic. Likely due to recent extensive work-up. 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 Denies any intense workout session or dehydration. CK 7000 today. Continue IV fluids. Trend CK. Monitor kidney function. (2) UTI (urinary tract infection) Is this a current diagnosis for this admission?: Yes Plan: Partially treated as outpatient. Due to Klebsiella. As per patient she got a call from her PCP stating that her urine culture came back positive for Klebsiella and it was sensitive to Keflex. Day 2 of p.o. antibiotics. Received 1 day of Augmentin. Day 1/5 of p.o. Keflex. (3) History of panic attacks Is this a current diagnosis for this admission?: Yes Plan: Restart home meds. (4) Depression Is this a current diagnosis for this admission?: Yes Plan: Denies any suicidal or homicidal ideation. Restart home meds. (5) POTS (postural orthostatic tachycardia syndrome) Is this a current diagnosis for this admission?: Yes Plan: Patient was diagnosed with paroxysmal orthostatic tachycardia syndrome by her stockroom inventory clerk Dr. Craig in [place]. She has been taking fludrocortisone with good control of her POTS. Patient states that beta-blockers make her feel sick. Refusing to take propranolol which was started by Dr. Quach stockroom inventory clerk. Continue fludrocortisone. Monitor volume status. Maintain euvolemia. Outpatient follow-up with Dr. Quach stockroom inventory clerk.
[2018-10-29] MEDS ORDERED: CEPHALEXIN 500 MG CAPSULE PO SCH (22:00)
[2018-10-30] MEDS: NORMAL SALINE 1000 ML 1,000 ML IV PRN ×5 (03:09→22:00)
[2018-10-30] MEDS: PROPRANOLOL HCL 10 MG TABLET PO SCH ×3 (05:03→21:33)
[2018-10-30] MEDS: HEPARIN SOD (PORCINE) 5,000 UNIT/ML 1 ML VIAL SUBCUT SCH ×3 (05:09→22:03)
[2018-10-30 06:21] LABS: ANION GAP 9 (5-19); BLOOD UREA NITROGEN 12 mg/dL (7-20); CALCIUM 8.6 mg/dL (8.4-10.2); CARBON DIOXIDE 22 mmol/L (22-30); CHLORIDE 108 mmol/L (98-107); GLUCOSE 100 mg/dL (75-110)
[2018-10-30 06:28] LABS: CREATINE KINASE 3086 U/L (30-135)
[2018-10-30] MEDS: SERTRALINE HCL 50 MG TABLET PO SCH (10:12)
[2018-10-30] MEDS: DOCUSATE SODIUM 100 MG CAPSULE PO SCH ×2 (10:12→18:34)
[2018-10-30] MEDS: FLUDROCORTISONE ACETATE 0.1 MG TABLET PO SCH ×2 (10:12→22:03)
[2018-10-30] MEDS: FAMOTIDINE 20 MG TABLET PO SCH ×2 (10:12→22:03)
[2018-10-30] MEDS: CEPHALEXIN 500 MG CAPSULE PO SCH ×2 (10:14→22:03)
--- NOTE | 2018-10-30 12:03 | PDOC PROGRESS REPORT ---
Subjective Progress Note for:: 10/30/18 Subjective:: ELIZA BONDS is a 18 year old female who presented to the emergency room with a 2-day history of chest pain. She admits waxing and waning pains in her left chest beginning yesterday and continuing today. The pain has been continuous but variable since onset and is described as a squeezing tightness in her chest at its worst and a vague nondescript sensation at the present time. The pain does not radiate but has been accompanied by variable dyspnea and nausea. 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 She has been experiencing episodic rapid heart rates in the 180s and 190s consistent with her POTS disease while working in the heat. She was seen at her cardiologists (Dr. Quach) office today and was sent to the hospital for further evaluation. She admits a prior similar episode when she had sepsis in the past. She has not identified any other aggravating or ameliorating factors for her chest pain. In the ER she was found to have a normal troponin I and EKG which did not reflect myocardial ischemia or injury. She was noted to have an elevated CPK with a CPK-MB currently pending. She was subsequently admitted to observation status for further evaluation and treatment. Dr. Quach will be consulted. 10/29/2018. No acute events overnight, patient complains of generalized and sore muscles, patient ambulatory, p.o. tolerant, having normal bowel and bladder movements. He denies any fever, shortness of breath, chest pain, nausea, vomiting, diarrhea, constipation or any urinary symptoms. 10/30/2018. No acute events overnight. Sore throat has resolved. Ambulatory, weakness has improved, denies any fever, chills, nausea, vomiting, diarrhea, constipation or any urinary symptoms. Reason For Visit: RHABDOMYOLYSIS,POTS,CHEST PAIN,ELEVATED CPK Physical Exam Vital Signs: Temp Pulse Resp BP Pulse Ox 97.6 F 81 12 89/53 L 100 10/30/18 07:30 10/30/18 07:30 10/30/18 07:30 10/30/18 07:30 10/30/18 07:30 Intake & Output 10/29/18 10/30/18 10/31/18 06:59 06:59 06:59 Intake Total 3650 2990 1000 Balance 3650 2990 1000 Weight 59.2 kg 59.3 kg General appearance: PRESENT: no acute distress, well-developed, well-nourished Head exam: PRESENT: atraumatic, normocephalic Eye exam: PRESENT: conjunctiva pink, EOMI, PERRLA. ABSENT: scleral icterus Ear exam: PRESENT: normal external ear exam Mouth exam: PRESENT: moist, tongue midline Neck exam: ABSENT: carotid bruit, JVD, lymphadenopathy, thyromegaly Respiratory exam: PRESENT: clear to auscultation pranay. ABSENT: rales, rhonchi, wheezes Cardiovascular exam: PRESENT: RRR. ABSENT: diastolic murmur, rubs, systolic mu rmur Pulses: PRESENT: normal dorsalis pedis pul Vascular exam: PRESENT: normal capillary refill GI/Abdominal exam: PRESENT: normal bowel sounds, soft. ABSENT: distended, guarding, mass, organolmegaly, rebound, tenderness Rectal exam: PRESENT: deferred Extremities exam: PRESENT: full ROM. ABSENT: calf tenderness, clubbing, pedal edema Neurological exam: PRESENT: alert, awake, oriented to person, oriented to place, oriented to time, oriented to situation, CN II-XII grossly intact. ABSENT: motor sensory deficit Psychiatric exam: PRESENT: appropriate affect, normal mood. ABSENT: homicidal ideation, suicidal ideation Skin exam: PRESENT: dry, intact, warm. ABSENT: cyanosis, rash Results Laboratory Results: 10/28/18 05:40 10/30/18 05:34 10/30/18 05:34 Sodium 138.7 Potassium 4.0 Chloride 108 H Carbon Dioxide 22 Anion Gap 9 BUN 12 Creatinine 0.44 L Est GFR ( Amer) > 60 Est GFR (Non-Af Amer) > 60 Glucose 100 Calcium 8.6 10/27/18 14:30 Clean Catch Midstream Urine Culture - Final NO GROWTH 2 DAYS 10/27/18 10/27/18 10/27/18 14:51 14:51 14:51 Creatine Kinase 9403 H CK-MB (CK-2) 24.00 H Troponin I < 0.012 10/27/18 10/27/18 10/28/18 23:47 23:47 05:40 Creatine Kinase 9234 H 8394 H CK-MB (CK-2) 16.50 H Troponin I < 0.012 10/28/18 10/28/18 10/28/18 05:40 12:12 12:12 Creatine Kinase 27743 H CK-MB (CK-2) 12.10 H 12.50 H Troponin I < 0.012 < 0.012 10/29/18 10/30/18 06:34 05:34 Creatine Kinase 7567 H 3086 H CK-MB (CK-2) Troponin I Impressions: Chest X-Ray 10/27/18 14:31 IMPRESSION: NO ACUTE RADIOGRAPHIC FINDING IN THE CHEST. Assessment and Plan - Diagnosis (1) Rhabdomyolysis Qualifiers: Rhabdomyolysis type: non-traumatic Qualified Code(s): M62.82 - Rhabdomyolysis Is this a current diagnosis for this admission?: Yes Plan: Nontraumatic. Likely due to recent extensive work-up. 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 Denies any intense workout session or dehydration. CK 3080 today. Continue IV fluids. Trend CK. Monitor kidney function. (2) UTI (urinary tract infection) Is this a current diagnosis for this admission?: Yes Plan: Partially treated as outpatient. Due to Klebsiella. As per patient she got a call from her PCP stating that her urine culture came back positive for Klebsiella and it was sensitive to Keflex. Day 3 of p.o. antibiotics. Received 1 day of Augmentin. Day 2/5 of p.o. Keflex. (3) History of panic attacks Is this a current diagnosis for this admission?: Yes Plan: Restart home meds. (4) Depression Is this a current diagnosis for this admission?: Yes Plan: Denies any suicidal or homicidal ideation. Restart home meds. (5) POTS (postural orthostatic tachycardia syndrome) Is this a current diagnosis for this admission?: Yes Plan: Patient was diagnosed with paroxysmal orthostatic tachycardia syndrome by her director graphics Dr. Craig in [place]. Thyroid function test WNL. She has been taking fludrocortisone with good control of her POTS. Patient states that beta-blockers make her feel sick. Refusing to take propranolol which was started by Dr. Quach director graphics. Continue fludrocortisone. Monitor volume status. Maintain euvolemia. Outpatient follow-up with Dr. Quach director graphics.
--- NOTE | 2018-10-30 12:53 | PDOC PROGRESS REPORT ---
Subjective Progress Note for:: 10/29/18 Subjective:: Chest pain. Patient was admitted through the emergency department yesterday with chest pain. So far EKGs and cardiac enzymes has been negative. Patient has noted some generalized body ache. She has also noted significant discomfort in the muscles on the inside aspect of her thighs. Patient claims that she exercised and worked in the gym, doing some exercise strengthening the tight muscles. Patient claims that she noted tachycardia with heart rate up to 180. She had also noted some intermittent chest pains. Patient presented to the office and the office staff told her to come to the emergency room. She was subsequently admitted. She was noted to have rhabdomyolysis but negative troponin I. October 29, 2018: Patient seems to be doing well. She had some episode of chest pain but associated with burning sensation in the throat. Lawrence to be related to GI reflux. Patient does have a history of it. Reason For Visit: RHABDOMYOLYSIS,POTS,CHEST PAIN,ELEVATED CPK Physical Exam Vital Signs: Temp Pulse Resp BP Pulse Ox 99.2 F 93 16 106/71 98 10/29/18 12:02 10/29/18 19:00 10/29/18 12:02 10/29/18 12:02 10/29/18 12:02 Intake & Output 10/28/18 10/29/18 10/30/18 06:59 06:59 06:59 Intake Total 3000 3650 1120 Balance 3000 3650 1120 Weight 58.5 kg 59.2 kg Exam: GENERAL: well-nourished and in no acute distress. Alert and oriented x3 HEAD: Atraumatic, normocephalic. EYES: FIDE, sclera anicteric, conjunctiva are normal. ENT: Moist mucous membranes. No oral ulcerations or bleeding gums noted. No obvious ear, nose or throat abnormalities noted. NECK: supple without lymphadenopathy. Trachea is central. No cervical or axillary lymphadenopathy noted. Carotids are 2+, JVD WNL LUNGS: Breath sounds clear bilaterally. No wheezes rales or rhonchi noted. No significant dullness noted on percussion. CHEST: Palpation of the chest wall shows mild chest wall tenderness. 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 ABDOMEN: Soft, no significant tenderness appreciated, normoactive bowel sounds. No guarding, no rebound. No rigidity noted . No masses appreciated. EXTREMITIES: Pedal pulses are 1-2+, no calf tenderness noted. No clubbing or cyanosis. negative pedal edema noted NEUROLOGICAL: Focused neurological exam showed no significant neurologic deficit. Normal speech, no focal weakness appreciated. PSYCH: Normal mood, normal affect. Judgment and insight within normal limits. SKIN: No significant ecchymosis, skin is noted to be warm. MUSCULOSKELETAL EXAM: No significant acute joint swelling noted. Patient also noted to have tender tight muscles. Results Laboratory Results: 10/28/18 05:40 10/29/18 06:34 10/29/18 06:34 Sodium 138.2 Potassium 3.9 Chloride 105 Carbon Dioxide 26 Anion Gap 7 BUN 8 Creatinine 0.45 L Est GFR ( Amer) > 60 Est GFR (Non-Af Amer) > 60 Glucose 84 Calcium 9.2 10/27/18 10/27/18 10/27/18 14:51 14:51 14:51 Creatine Kinase 9403 H CK-MB (CK-2) 24.00 H Troponin I < 0.012 10/27/18 10/27/18 10/28/18 23:47 23:47 05:40 Creatine Kinase 9234 H 8394 H CK-MB (CK-2) 16.50 H Troponin I < 0.012 10/28/18 10/28/18 10/28/18 05:40 12:12 12:12 Creatine Kinase 05930 H CK-MB (CK-2) 12.10 H 12.50 H Troponin I < 0.012 < 0.012 10/29/18 06:34 Creatine Kinase 7567 H CK-MB (CK-2) Troponin I Impressions: Chest X-Ray 10/27/18 14:31 IMPRESSION: NO ACUTE RADIOGRAPHIC FINDING IN THE CHEST. Assessment & Plan - Diagnosis (1) Chest pain Qualifiers: Chest pain type: unspecified Qualified Code(s): R07.9 - Chest pain, unspecified Is this a current diagnosis for this admission?: Yes (2) Elevated CPK Is this a current diagnosis for this admission?: Yes (3) POTS (postural orthostatic tachycardia syndrome) Is this a current diagnosis for this admission?: Yes (4) Pyuria Is this a current diagnosis for this admission?: Yes - Notes Notes: Chest pain: Lawrence to be noncardiac possibly related to GI reflux. Will place patient on empiric proton pump inhibitor. Elevated CPK: Due to rhabdomyolysis. Cause not clear. If there is persistent elevation of total CK, consider myopathic illness. Postural orthostatic tachycardia syndrome: Currently stable. Will gradually increase but metoprolol or Inderal therapy. Pyuria: Currently stable. - Time Time with patient: Greater than 35 minutes - More than 50% of the time spent coordinating care, discussing management plans with involved caregivers. Management plans discussed with involved personnels. Medical decision making was of moderate to high complexity, patient's has multiple comorbidities. Medications reviewed and adjusted accordingly: Yes
--- NOTE | 2018-10-30 19:27 | PDOC PROGRESS REPORT ---
Subjective Progress Note for:: 10/30/18 Subjective:: Chest pain. Patient was admitted through the emergency department yesterday with chest pain. So far EKGs and cardiac enzymes has been negative. Patient has noted some generalized body ache. She has also noted significant discomfort in the muscles on the inside aspect of her thighs. Patient claims that she exercised and worked in the gym, doing some exercise strengthening the tight muscles. Patient claims that she noted tachycardia with heart rate up to 180. She had also noted some intermittent chest pains. Patient presented to the office and the office staff told her to come to the emergency room. She was subsequently admitted. She was noted to have rhabdomyolysis but negative troponin I. October 29, 2018: Patient seems to be doing well. She had some episode of chest pain but associated with burning sensation in the throat. [place] to be related to GI reflux. Patient does have a history of it. October 30, 2018: Patient is doing well. She has been noted to have somewhat of a low blood pressure but asymptomatic. Patient has been declining beta-wyatt therapy claiming side effects. Patient claims to be getting Florinef. Patient had no recurrence of chest pain. Patient is on H2 wyatt. Reason For Visit: RHABDOMYOLYSIS,POTS,CHEST PAIN,ELEVATED CPK Physical Exam Vital Signs: Temp Pulse Resp BP Pulse Ox 97.6 F 81 12 89/53 L 100 10/30/18 07:30 10/30/18 07:30 10/30/18 07:30 10/30/18 07:30 10/30/18 07:30 Intake & Output 10/29/18 10/30/18 10/31/18 06:59 06:59 06:59 Intake Total 3650 2990 1999 Balance 3650 2990 1999 Weight 59.2 kg 59.3 kg Exam: GENERAL: well-nourished and in no acute distress. Alert and oriented x3 HEAD: Atraumatic, normocephalic. EYES: FIDE, sclera anicteric, conjunctiva are normal. ENT: Moist mucous membranes. No oral ulcerations or bleeding gums noted. No obvious ear, nose or throat abnormalities noted. NECK: supple without lymphadenopathy. Trachea is central. No cervical or axillary lymphadenopathy noted. Carotids are 2+, JVD WNL LUNGS: Breath sounds clear bilaterally. No wheezes rales or rhonchi noted. No significant dullness noted on percussion. CHEST: Palpation of the chest wall shows no significant chest wall tenderness. 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 ABDOMEN: Soft, no significant tenderness appreciated, normoactive bowel sounds. No guarding, no rebound. No rigidity noted . No masses appreciated. EXTREMITIES: Pedal pulses are 1-2+, no calf tenderness noted. No clubbing or cyanosis. negative pedal edema noted NEUROLOGICAL: Focused neurological exam showed no significant neurologic deficit. Normal speech, no focal weakness appreciated. PSYCH: Normal mood, normal affect. Judgment and insight within normal limits. SKIN: No significant ecchymosis, skin is noted to be warm. MUSCULOSKELETAL EXAM: No significant acute joint swelling noted. Results Laboratory Results: 10/28/18 05:40 10/30/18 05:34 10/30/18 05:34 Sodium 138.7 Potassium 4.0 Chloride 108 H Carbon Dioxide 22 Anion Gap 9 BUN 12 Creatinine 0.44 L Est GFR ( Amer) > 60 Est GFR (Non-Af Amer) > 60 Glucose 100 Calcium 8.6 10/27/18 14:30 Clean Catch Midstream Urine Culture - Final NO GROWTH 2 DAYS 10/27/18 10/27/18 10/27/18 14:51 14:51 14:51 Creatine Kinase 9403 H CK-MB (CK-2) 24.00 H Troponin I < 0.012 10/27/18 10/27/18 10/28/18 23:47 23:47 05:40 Creatine Kinase 9234 H 8394 H CK-MB (CK-2) 16.50 H Troponin I < 0.012 10/28/18 10/28/18 10/28/18 05:40 12:12 12:12 Creatine Kinase 79221 H CK-MB (CK-2) 12.10 H 12.50 H Troponin I < 0.012 < 0.012 10/29/18 10/30/18 06:34 05:34 Creatine Kinase 7567 H 3086 H CK-MB (CK-2) Troponin I Impressions: Chest X-Ray 10/27/18 14:31 IMPRESSION: NO ACUTE RADIOGRAPHIC FINDING IN THE CHEST. Assessment & Plan - Diagnosis (1) Chest pain Qualifiers: Chest pain type: unspecified Qualified Code(s): R07.9 - Chest pain, unspecified Is this a current diagnosis for this admission?: Yes (2) Elevated CPK Is this a current diagnosis for this admission?: Yes (3) POTS (postural orthostatic tachycardia syndrome) Is this a current diagnosis for this admission?: Yes (4) Pyuria Is this a current diagnosis for this admission?: Yes - Notes Notes: Lab data shows resolving CPK elevations. Chest pain has resolved Patient to follow-up in the office with stress test to be scheduled when rhabdomyolysis has resolved. Patient also to have a 2D echo as an outpatient. - Time Time with patient: Greater than 35 minutes - More than 50% of the time spent coordinating care, discussing management plans with involved caregivers. Management plans discussed with involved personnels. Medical decision making was of moderate to high complexity, patient's has multiple comorbidities. Medications reviewed and adjusted accordingly: Yes
[2018-10-30] MEDS: CLONAZEPAM 1 MG TABLET PO PRN (22:02)
[2018-10-31 05:24] LABS: ANION GAP 9 (5-19); BLOOD UREA NITROGEN 8 mg/dL (7-20); CALCIUM 9.3 mg/dL (8.4-10.2); CARBON DIOXIDE 24 mmol/L (22-30); CHLORIDE 106 mmol/L (98-107); CREATINE KINASE 1450 U/L (30-135); GLUCOSE 90 mg/dL (75-110); POTASSIUM 4.1 mmol/L (3.6-5.0)
[2018-10-31] MEDS: PROPRANOLOL HCL 10 MG TABLET PO SCH ×3 (06:33→22:44)
[2018-10-31] MEDS: HEPARIN SOD (PORCINE) 5,000 UNIT/ML 1 ML VIAL SUBCUT SCH ×3 (06:33→22:44)
[2018-10-31] MEDS: DOCUSATE SODIUM 100 MG CAPSULE PO SCH ×2 (09:38→17:28)
[2018-10-31] MEDS: SERTRALINE HCL 50 MG TABLET PO SCH (09:42)
[2018-10-31] MEDS: CLONAZEPAM 1 MG TABLET PO PRN ×2 (09:42→22:52)
[2018-10-31] MEDS: FLUDROCORTISONE ACETATE 0.1 MG TABLET PO SCH ×2 (09:42→22:44)
[2018-10-31] MEDS: CEPHALEXIN 500 MG CAPSULE PO SCH ×2 (09:43→22:44)
[2018-10-31] MEDS: FAMOTIDINE 20 MG TABLET PO SCH ×2 (09:43→22:44)
[2018-10-31] MEDS: NORMAL SALINE 1000 ML 1,000 ML IV PRN ×2 (09:48→22:46)
--- NOTE | 2018-10-31 19:17 | PDOC PROGRESS REPORT ---
Subjective Progress Note for:: 10/31/18 Subjective:: ELIZA BONDS is a 18 year old female who presented to the emergency room with a 2-day history of chest pain. She admits waxing and waning pains in her left chest beginning yesterday and continuing today. The pain has been continuous but variable since onset and is described as a squeezing tightness in her chest at its worst and a vague nondescript sensation at the present time. The pain does not radiate but has been accompanied by variable dyspnea and nausea. 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 She has been experiencing episodic rapid heart rates in the 180s and 190s consistent with her POTS disease while working in the heat. She was seen at her cardiologists (Dr. Quach) office today and was sent to the hospital for further evaluation. She admits a prior similar episode when she had sepsis in the past. She has not identified any other aggravating or ameliorating factors for her chest pain. In the ER she was found to have a normal troponin I and EKG which did not reflect myocardial ischemia or injury. She was noted to have an elevated CPK with a CPK-MB currently pending. She was subsequently admitted to observation status for further evaluation and treatment. Dr. Quach will be consulted. 10/29/2018. No acute events overnight, patient complains of generalized and sore muscles, patient ambulatory, p.o. tolerant, having normal bowel and bladder movements. He denies any fever, shortness of breath, chest pain, nausea, vomiting, diarrhea, constipation or any urinary symptoms. 10/30/2018. No acute events overnight. Sore throat has resolved. Ambulatory, weakness has improved, denies any fever, chills, nausea, vomiting, diarrhea, constipation or any urinary symptoms. Reason For Visit: RHABDOMYOLYSIS,POTS,CHEST PAIN,ELEVATED CPK Physical Exam Vital Signs: Temp Pulse Resp BP Pulse Ox 99.1 F 98 16 100/57 L 96 10/31/18 15:31 10/31/18 15:31 10/31/18 15:31 10/31/18 15:31 10/31/18 15:31 Intake & Output 10/30/18 10/31/18 11/01/18 06:59 06:59 06:59 Intake Total 2990 5950 600 Balance 2990 5950 600 Weight 59.3 kg 60 kg General appearance: PRESENT: no acute distress, well-developed, well-nourished Head exam: PRESENT: atraumatic, normocephalic Eye exam: PRESENT: conjunctiva pink, EOMI, PERRLA. ABSENT: scleral icterus Ear exam: PRESENT: normal external ear exam Mouth exam: PRESENT: moist, tongue midline Neck exam: ABSENT: carotid bruit, JVD, lymphadenopathy, thyromegaly Respiratory exam: PRESENT: clear to auscultation pranay. ABSENT: rales, rhonchi, wheezes Cardiovascular exam: PRESENT: RRR. ABSENT: diastolic murmur, rubs, systolic murmur Pulses: PRESENT: normal dorsalis pedis pul Vascular exam: PRESENT: normal capillary refill GI/Abdominal exam: PRESENT: normal bowel sounds, soft. ABSENT: distended, guarding, mass, organolmegaly, rebound, tenderness Rectal exam: PRESENT: deferred Extremities exam: PRESENT: full ROM. ABSENT: calf tenderness, clubbing, pedal edema Neurological exam: PRESENT: alert, awake, oriented to person, oriented to place, oriented to time, oriented to situation, CN II-XII grossly intact. ABSENT: motor sensory deficit Psychiatric exam: PRESENT: appropriate affect, normal mood. ABSENT: homicidal ideation, suicidal ideation Skin exam: PRESENT: dry, intact, warm. ABSENT: cyanosis, rash Results Laboratory Results: 10/28/18 05:40 10/31/18 04:39 10/31/18 04:39 Sodium 138.9 Potassium 4.1 Chloride 106 Carbon Dioxide 24 Anion Gap 9 BUN 8 Creatinine 0.49 L Est GFR ( Amer) > 60 Est GFR (Non-Af Amer) > 60 Glucose 90 Calcium 9.3 10/27/18 10/27/18 10/27/18 14:51 14:51 14:51 Creatine Kinase 9403 H CK-MB (CK-2) 24.00 H Troponin I < 0.012 10/27/18 10/27/18 10/28/18 23:47 23:47 05:40 Creatine Kinase 9234 H 8394 H CK-MB (CK-2) 16.50 H Troponin I < 0.012 10/28/18 10/28/18 10/28/18 05:40 12:12 12:12 Creatine Kinase 77555 H CK-MB (CK-2) 12.10 H 12.50 H Troponin I < 0.012 < 0.012 10/29/18 10/30/18 10/31/18 06:34 05:34 04:39 Creatine Kinase 7567 H 3086 H 1450 H CK-MB (CK-2) Troponin I 10/31/18 10/31/18 15:44 15:44 Creatine Kinase 952 H CK-MB (CK-2) 0.59 Troponin I Impressions: Chest X-Ray 10/27/18 14:31 IMPRESSION: NO ACUTE RADIOGRAPHIC FINDING IN THE CHEST. Assessment and Plan - Diagnosis (1) Rhabdomyolysis Qualifiers: Rhabdomyolysis type: non-traumatic Qualified Code(s): M62.82 - Rhabdomyolysis Is this a current diagnosis for this admission?: Yes Plan: Nontraumatic. Likely due to recent extensive work-up. 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 Denies any intense workout session or dehydration. CK 900 today. Continue IV fluids. Trend CK. Monitor kidney function. (2) UTI (urinary tract infection) Is this a current diagnosis for this admission?: Yes Plan: Partially treated as outpatient. Due to Klebsiella. As per patient she got a call from her PCP stating that her urine culture came back positive for Klebsiella and it was sensitive to Keflex. Day 3 of p.o. antibiotics. Received 1 day of Augmentin. Day 2/5 of p.o. Keflex. (3) History of panic attacks Is this a current diagnosis for this admission?: Yes Plan: Restart home meds. (4) Depression Is this a current diagnosis for this admission?: Yes Plan: Denies any suicidal or homicidal ideation. Restart home meds. (5) POTS (postural orthostatic tachycardia syndrome) Is this a current diagnosis for this admission?: Yes Plan: Patient was diagnosed with paroxysmal orthostatic tachycardia syndrome by her c ardiologist Dr. Craig in [place]. Thyroid function test WNL. She has been taking fludrocortisone with good control of her POTS. Patient states that beta-blockers make her feel sick. Refusing to take propranolol which was started by Dr. Quach rug washer. Continue fludrocortisone. Monitor volume status. Maintain euvolemia. Outpatient follow-up with Dr. Quach rug washer.
[2018-11-01] MEDS: NORMAL SALINE 1000 ML 1,000 ML IV PRN ×2 (00:56→06:19)
[2018-11-01] MEDS: HEPARIN SOD (PORCINE) 5,000 UNIT/ML 1 ML VIAL SUBCUT SCH ×2 (06:20→13:04)
[2018-11-01] MEDS: PROPRANOLOL HCL 10 MG TABLET PO SCH ×2 (06:20→13:04)
[2018-11-01] MEDS: FAMOTIDINE 20 MG TABLET PO SCH (09:34)
[2018-11-01] MEDS: DOCUSATE SODIUM 100 MG CAPSULE PO SCH (09:34)
[2018-11-01] MEDS: CEPHALEXIN 500 MG CAPSULE PO SCH (09:34)
[2018-11-01] MEDS: FLUDROCORTISONE ACETATE 0.1 MG TABLET PO SCH (09:34)
[2018-11-01] MEDS: SERTRALINE HCL 50 MG TABLET PO SCH (09:34)
[2018-11-01] MEDS: CLONAZEPAM 1 MG TABLET PO PRN (09:35)
[2018-11-01 15:51] VITALS: BP 99/56
--- NOTE | 2018-11-01 18:39 | PDOC PROGRESS REPORT ---
Subjective Progress Note for:: 10/31/18 Subjective:: Chest pain. Patient was admitted through the emergency department yesterday with chest pain. So far EKGs and cardiac enzymes has been negative. Patient has noted some generalized body ache. She has also noted significant discomfort in the muscles on the inside aspect of her thighs. Patient claims that she exercised and worked in the gym, doing some exercise strengthening the tight muscles. Patient claims that she noted tachycardia with heart rate up to 180. She had also noted some intermittent chest pains. Patient presented to the office and the office staff told her to come to the emergency room. She was subsequently admitted. She was noted to have rhabdomyolysis but negative troponin I. October 29, 2018: Patient seems to be doing well. She had some episode of chest pain but associated with burning sensation in the throat. [place] to be related to GI reflux. Patient does have a history of it. October 30, 2018: Patient is doing well. She has been noted to have somewhat of a low blood pressure but asymptomatic. Patient has been declining beta-wyatt therapy claiming side effects. Patient claims to be getting Florinef. Patient had no recurrence of chest pain. Patient is on H2 wyatt. October 31, 2018: Patient denies any chest pain but has noted some intermittent abdominal discomfort. Patient claims to be constipated. Patient has noted some discomfort in between thigh area. However this is gradually improving. Reason For Visit: RHABDOMYOLYSIS,POTS,CHEST PAIN,ELEVATED CPK Physical Exam Vital Signs: Temp Pulse Resp BP Pulse Ox 99.0 F 92 14 100/52 L 98 10/31/18 20:29 10/31/18 20:29 10/31/18 20:29 10/31/18 20:29 10/31/18 20:29 Intake & Output 10/30/18 10/31/18 11/01/18 06:59 06:59 06:59 Intake Total 2990 5950 600 Balance 2990 5950 600 Weight 59.3 kg 60 kg Exam: GENERAL: well-nourished and in no acute distress. Alert and oriented x3 HEAD: Atraumatic, normocephalic. EYES: FIDE, sclera anicteric, conjunctiva are normal. ENT: Moist mucous membranes. No oral ulcerations or bleeding gums noted. No obvious ear, nose or throat abnormalities noted. NECK: supple without lymphadenopathy. Trachea is central. No cervical or axillary lymphadenopathy noted. Carotids are 2+, JVD WNL LUNGS: Breath sounds clear bilaterally. No wheezes rales or rhonchi noted. No significant dullness noted on percussion. CHEST: Palpation of the chest wall shows no significant chest wall tenderness. 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 ABDOMEN: Soft, no significant tenderness appreciated, normoactive bowel sounds. No guarding, no rebound. No rigidity noted . No masses appreciated. EXTREMITIES: Pedal pulses are 1-2+, no calf tenderness noted. No clubbing or cyanosis. negative pedal edema noted NEUROLOGICAL: Focused neurological exam showed no significant neurologic deficit. Normal speech, no focal weakness appreciated. PSYCH: Normal mood, normal affect. Judgment and insight within normal limits. SKIN: No significant ecchymosis, skin is noted to be warm. MUSCULOSKELETAL EXAM: No significant acute joint swelling noted. Results Laboratory Results: 10/28/18 05:40 10/31/18 04:39 10/31/18 04:39 Sodium 138.9 Potassium 4.1 Chloride 106 Carbon Dioxide 24 Anion Gap 9 BUN 8 Creatinine 0.49 L Est GFR ( Amer) > 60 Est GFR (Non-Af Amer) > 60 Glucose 90 Calcium 9.3 10/27/18 10/27/18 10/27/18 14:51 14:51 14:51 Creatine Kinase 9403 H CK-MB (CK-2) 24.00 H Troponin I < 0.012 10/27/18 10/27/18 10/28/18 23:47 23:47 05:40 Creatine Kinase 9234 H 8394 H CK-MB (CK-2) 16.50 H Troponin I < 0.012 10/28/18 10/28/18 10/28/18 05:40 12:12 12:12 Creatine Kinase 96110 H CK-MB (CK-2) 12.10 H 12.50 H Troponin I < 0.012 < 0.012 10/29/18 10/30/18 10/31/18 06:34 05:34 04:39 Creatine Kinase 7567 H 3086 H 1450 H CK-MB (CK-2) Troponin I 10/31/18 10/31/18 15:44 15:44 Creatine Kinase 952 H CK-MB (CK-2) 0.59 Troponin I EKG Comments: Telemetry shows sinus rhythm without any sustained tachycardia or bradycardia Impressions: Chest X-Ray 10/27/18 14:31 IMPRESSION: NO ACUTE RADIOGRAPHIC FINDING IN THE CHEST. Assessment & Plan - Diagnosis (1) Chest pain Qualifiers: Chest pain type: unspecified Qualified Code(s): R07.9 - Chest pain, unspecified Is this a current diagnosis for this admission?: Yes (2) Elevated CPK Is this a current diagnosis for this admission?: Yes (3) POTS (postural orthostatic tachycardia syndrome) Is this a current diagnosis for this admission?: Yes (4) Pyuria Is this a current diagnosis for this admission?: Yes - Notes Notes: Patient would benefit from a stress test and ultrasound. These apparently are already as scheduled as an outpatient. Patient advised to follow-up. Patient report to any further problems. Patient informed that her lab work was reviewed. Her muscle enzymes levels are showing gradual normalization. - Time Time with patient: 15-25 minutes - More than 50% of the time spent coordinating care, discussing management plans with involved caregivers. Management plans discussed with involved personnels. Medical decision making was of moderate to high complexity, patient's has multiple comorbidities. Medications reviewed and adjusted accordingly: Yes
--- NOTE | 2018-11-05 12:56 | PDOC DISCHARGE SUMMARY ---
General - Admit/Disc Date/PCP Admission Date/Primary Care Provider: 10/29/18 09:43 EMMANUEL FRANKLIN MD Discharge Date: 11/01/18 - Discharge Diagnosis (1) Rhabdomyolysis Is this a current diagnosis for this admission?: Yes (2) UTI (urinary tract infection) Is this a current diagnosis for this admission?: Yes (3) History of panic attacks Is this a current diagnosis for this admission?: Yes (4) Depression Is this a current diagnosis for this admission?: Yes (5) POTS (postural orthostatic tachycardia syndrome) Is this a current diagnosis for this admission?: Yes - Additional Information Resuscitation Status: Full Code Discharge Diet: As Tolerated Discharge Activity: Activity As Tolerated, Balance Activity w/Rest Prescriptions: Propranolol HCl [Inderal 10 mg Tablet] 10 mg PO Q8 30 Days #90 tab Home Medications: Clonazepam [Klonopin 1 mg Tablet] 1 mg PO BIDP PRN 10/28/18 Cranberry Conc/C/Bacill Coag [AZO Cranberry Tablet] 1 each PO DAILY 10/28/18 Fludrocortisone Acetate [Florinef 0.1 mg Tablet] 0.05 mg PO Q12 10/28/18 Sertraline HCl [Zoloft 50 mg Tablet] 150 mg PO DAILY 10/28/18 Propranolol HCl [Inderal 10 mg Tablet] 10 mg PO Q8 30 Days #90 tab 11/01/18 History of Present Illness History of Present Illness: ELIZA BONDS is a 18 year old female Hospital Course Hospital Course: (1) Rhabdomyolysis Nontraumatic. Likely due to recent extensive work-up. 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 Denies any intense workout session or dehydration. Started on IV fluids and CK trended daily, kidney function monitored and daily CMP. On the day of discharge CK 529. Kidney function WNL. Calcium WNL. Asymptomatic. (2) UTI (urinary tract infection) Partially treated as outpatient. Due to Klebsiella. As per patient she got a call from her PCP stating that her urine culture came back positive for Klebsiella and it was sensitive to Keflex. Urine culture remain negative. Received failure days of p.o. antibiotics. Received 1 day of Augmentin. Received 3 days of p.o. Keflex, was asked to continue another 2 days to complete 5 days of antibiotics. Patient was provided with Keflex by PCP. (3) History of panic attacks Restarted home meds. (4) Depression Denies any suicidal or homicidal ideation. Restarted home meds. (5) POTS (postural orthostatic tachycardia syndrome) Patient was diagnosed with paroxysmal orthostatic tachycardia syndrome by her medical practice assistant Dr. Craig in [place]. Thyroid function test WNL. She has been taking fludrocortisone with good control of her POTS. Fludrocortisone was restarted, vitals were monitored. Network Designer was consulted. Recommendations noted. Patient was discharged on propanolol and was asked to follow-up with Dr. Quach. Patient states that beta-blockers make her feel sick. Refusing to take propranolol which was started by Dr. Quach medical practice assistant. Physical Exam Vital Signs: Temp Pulse Resp BP Pulse Ox 99.6 F 75 17 99/56 L 98 11/01/18 15:40 11/01/18 15:40 11/01/18 15:40 11/01/18 15:40 11/01/18 15:40 General appearance: PRESENT: no acute distress, well-developed, well-nourished Head exam: PRESENT: atraumatic, normocephalic Eye exam: PRESENT: conjunctiva pink, EOMI, PERRLA. ABSENT: scleral icterus Ear exam: PRESENT: normal external ear exam Mouth exam: PRESENT: moist, tongue midline Neck exam: ABSENT: carotid bruit, JVD, lymphadenopathy, thyromegaly Respiratory exam: PRESENT: clear to auscultation pranay. ABSENT: rales, rhonchi, wheezes Cardiovascular exam: PRESENT: RRR. ABSENT: diastolic murmur, rubs, systolic murmur Pulses: PRESENT: normal dorsalis pedis pul Vascular exam: PRESENT: normal capillary refill GI/Abdominal exam: PRESENT: normal bowel sounds, soft. ABSENT: distended, guarding, mass, organolmegaly, rebound, tenderness Rectal exam: PRESENT: deferred Extremities exam: PRESENT: full ROM. ABSENT: calf tenderness, clubbing, pedal edema Neurological exam: PRESENT: alert, awake, oriented to person, oriented to place, oriented to time, oriented to situation, CN II-XII grossly intact. ABSENT: motor sensory deficit Psychiatric exam: PRESENT: appropriate affect, normal mood. ABSENT: homicidal ideation, suicidal ideation Skin exam: PRESENT: dry, intact, warm. ABSENT: cyanosis, rash Results Laboratory Results: 10/28/18 05:40 10/31/18 04:39 10/27/18 10/27/18 10/27/18 14:51 14:51 14:51 Creatine Kinase 9403 H CK-MB (CK-2) 24.00 H Troponin I < 0.012 10/27/18 10/27/18 10/28/18 23:47 23:47 05:40 Creatine Kinase 9234 H 8394 H CK-MB (CK-2) 16.50 H Troponin I < 0.012 10/28/18 10/28/18 10/28/18 05:40 12:12 12:12 Creatine Kinase 50904 H CK-MB (CK-2) 12.10 H 12.50 H Troponin I < 0.012 < 0.012 10/29/18 10/30/18 10/31/18 06:34 05:34 04:39 Creatine Kinase 7567 H 3086 H 1450 H CK-MB (CK-2) Troponin I 10/31/18 10/31/18 11/01/18 15:44 15:44 04:59 Creatine Kinase 952 H 579 H CK-MB (CK-2) 0.59 Troponin I 11/01/18 14:17 Creatine Kinase 529 H CK-MB (CK-2) Troponin I Impressions: Chest X-Ray 10/27/18 14:31 IMPRESSION: NO ACUTE RADIOGRAPHIC FINDING IN THE CHEST. Qualifiers - * PATIENT BEING DISCHARGED WITH ANY OF THE FOLLOWING DIAGNOSIS: No Acute Heart Failure - Is this a Heart Failure Patient?: No
== END 2018-11-01 17:07 | disposition home or self-care (01) | DRG 558 ==
LOC: ER 12:39 → EH 22:30 → 4W 10-28 09:37 → 4S 10-28 17:01 → OBSVTOIN 10-29 09:43
PROVIDERS: ADMIT Emergency Medicine; ATTEND Emergency Medicine
DX: M62.82 Rhabdomyolysis (principal); N39.0 Urinary tract infection, site not specified; R07.9 Chest pain, unspecified; B96.1 Klebsiella pneumoniae [K. pneumoniae] as the cause of diseases classified elsewhere; F32.9 Major depressive disorder, single episode, unspecified; F41.0 Panic disorder [episodic paroxysmal anxiety]; I49.8 Other specified cardiac arrhythmias; Q05.9 Spina bifida, unspecified; Z91.14 Patient's other noncompliance with medication regimen; Z91.018 Allergy to other foods; Z87.440 Personal history of urinary (tract) infections
CPT/HCPCS: 36415; 71046; 80048; 80053; 80307; 81001; 81025; 82550; 82553; 83690; 83735; 84439; 84443; 84481; 84484; 85025; 85027; 87086; 93005; 93010; 96360; 96361; 99285; J1644; J2405; J3490; J7030; J7120

== ENCOUNTER 2018-11-28 20:31 | Emergency (ER) | payer OTHER ==
--- NOTE | 2018-11-28 22:04 | ER Document Report ---
ED Medical Screen (RME) - General Chief Complaint: Chest Pain Stated Complaint: CHEST PAIN, DIZZINESS, HIGH HEART RATE Time Seen by Provider: 11/28/18 21:26 Primary Care Provider: EMMANUEL FRANKLIN MD [Primary Care Provider] - Follow up as needed Notes: HPI: 18-year-old female with listed past medical history here for chest pain intermittently for the last week worse over the last day. History of this before in the past and they told her she had rhabdo last month. This is in [place]. They wanted to have a "CT of my heart" but she states that her pulse would not slow down fast enough for them to be up to get a good image. She does have a history of pots. She states she had an abnormal stress test last year. She just moved here. Her heart doctor is Philomena. PCP is Thong. No syncope. No palpitations. Pain is not worse with eating, moving. It is worse with deep breathing. Not better with rest. No prior history of blood clots. Last menstrual period was November 07. No blood thinners. No fall or trauma. No recent illness. No other complaints at this time. ROS neg to include 10 systems, unless mentioned in the hpi. PE:>>>> PHYSICAL_EXAM: GENERAL_APPEARANCE: well_nourished, alert, cooperative, no_acute_distress, no_obvious_discomfort. pleasant, young white female, smiling, speaking in full sentences, in no sign of pain or resp distress, VITALS: reviewed, see vital signs table. HEAD: no_swelling\\tenderness on the head. normocephalic. atraumatic. no marion signs. no raccoons eyes. EYES: PERRL, EOMI, conjunctiva_clear. NOSE: no_nasal_discharge. MOUTH: (-)decreased moisture. THROAT: no_tonsilar_inflammation, no_airway_obstruction. no_lymphadenopathy NECK: supple, no_neck_tenderness, full rom. full strength. no meningeal signs. BACK: no_back_tenderness. CHEST_WALL: no_chest_tenderness. no overlying skin changes LUNGS: no_wheezing, ctab (-)accessory muscle use, good air exchange bilateral. HEART: normal_rate, normal_rhythm, ABDOMEN: normal_BS, soft, no_abd_tenderness, (-)guarding, (-)rebound, no distension or peritoneal signs. no cva ttp EXTREMITIES: strength 5/5 in all_extremities, good pulses in all_extremities, no_swelling\\tenderness in the extremities, no_edema. full rom. normal gait. good pulses. brisk cap refill. good hand visual basic .net developer. NEURO: motor and sensation intact, SKIN: warm, dry, good_color, no_rash. MENTAL_STATUS: speech_clear, oriented_X_3, normal_affect, responds_appropriately to questions. MDM: I have ordered labs and initial work-up and patient will be transferred to the main ER for further work-up. I have greeted and performed a rapid initial assessment of this patient. A comprehensive ED assessment and evaluation of the patient, analysis of test results and completion of medical decision making process will be conducted by an additional ED providers. Documentation achieved through voice recording which my lead to some occasional accidental typographical errors. Extensive efforts have been made to proof read documentation to make sure these are the least as possible Temp Pulse Resp BP Pulse Ox 11/28/18 20:41 98.7 F 117 H 16 127/78 H 96 Category Date Time Status EKG Documentation STAT Care 11/28/18 20:37 Completed CHEST 2 VIEWS [RAD] Stat Exams 11/28/18 21:33 Ordered CBC WITH DIFF [HEME] Stat Lab 11/28/18 21:32 Ordered COMPREHENSIVE METABOLIC PANEL [CHEM] Stat Lab 11/28/18 21:32 Ordered CREATINE KINASE MB [CHEM] Stat Lab 11/28/18 21:32 Ordered CREATINE KINASE [CHEM] Stat Lab 11/28/18 21:32 Ordered HCG QUALITATIVE, URINE [URIN] Stat Lab 11/28/18 21:32 Uncollected MAGNESIUM [CHEM] Stat Lab 11/28/18 21:43 Ordered PARTIAL THROMBOPLASTIN TIME [COAG] Stat Lab 11/28/18 21:33 Ordered PROTHROMBIN TIME/INR [COAG] Stat Lab 11/28/18 21:33 Ordered T4 [FREE T4 (FREE THYROXINE)] [CHEM] Stat Lab 11/28/18 21:44 Ordered THYROID STIMULATING HORMONE [CHEM] Stat Lab 11/28/18 21:44 Ordered TROPONIN I [CHEM] Stat Lab 11/28/18 21:33 Ordered URINALYSIS [URIN] Stat Lab 11/28/18 21:33 Uncollected EKG ER ONLY [ER] Stat Oth 11/28/18 Active TRAVEL OUTSIDE OF THE [place] IN LAST 30 DAYS: No - Related Data Allergies/Adverse Reactions: pomegranate Allergy (Verified 11/28/18 20:37) Past Medical History - Past Medical History Cardiac Medical History: Denies: Hx Atrial Fibrillation, Hx Congestive Heart Failure, Hx Coronary Artery Disease, Hx Hypertension Pulmonary Medical History: Denies: Hx Asthma, Hx COPD Neurological Medical History: Denies: Hx Seizures Endocrine Medical History: Denies: Hx Diabetes Mellitus Type 1, Hx Hyperthyroidism, Hx Hypothyroidism Renal/ Medical History: Denies: Hx Peritoneal Dialysis GI Medical History: Denies: Hx Cirrhosis, Hx Crohn's Disease, Hx Hepatitis, Hx Ulcerative Colitis Musculoskeltal Medical History: Denies Hx Arthritis, Denies Hx Fibromyalgia, Denies Hx Gout Skin Medical History: Denies Hx Eczema, Denies Hx Psoriasis Infectious Medical History: Denies: Hx Hepatitis Physical Exam - Vital signs Vitals: Temp Pulse Resp BP Pulse Ox 98.7 F 117 H 16 127/78 H 96 11/28/18 20:41 11/28/18 20:41 11/28/18 20:41 11/28/18 20:41 11/28/18 20:41 Course - Vital Signs Vital signs: Temp Pulse Resp BP Pulse Ox 98.7 F 117 H 16 127/78 H 96 11/28/18 20:41 11/28/18 20:41 11/28/18 20:41 11/28/18 20:41 11/28/18 20:41 Doctor's Discharge - Discharge Referrals: EMMANUEL FRANKLIN MD [Primary Care Provider] - Follow up as needed
--- NOTE | 2018-11-28 22:35 | RADIOLOGY REPORT (SQ) ---
EXAM DESCRIPTION: XR CHEST 2 VIEWS COMPLETED DATE/TME: 11/28/2018 21:33 CLINICAL HISTORY: 18 years Female, cp COMPARISON:Oct 27 2018 NUMBER OF VIEWS/TECHNIQUE: 2, Frontal, Lateral FINDINGS: Adequate lung volume, clear parenchyma, normal cardiac silhouette, and intact bony thorax. IMPRESSION: No acute cardiopulmonary findings.
[2018-11-28 23:01] LABS: ABSOLUTE BASOPHILS # (AUTO) 0.1 10^3/uL (0.0-0.2); ABSOLUTE EOSINOPHILS # (AUTO) 0.2 10^3/uL (0.0-0.6); ABSOLUTE LYMPHOCYTES (AUTO) 3.2 10^3/uL (0.5-4.7); ABSOLUTE MONOCYTES (AUTO) 1.1 10^3/uL (0.1-1.4); ABSOLUTE NEUT (AUTO) 5.2 10^3/uL (1.7-8.2); BASOPHILS % (AUTO) 0.8 % (0-2); EOSINOPHILS % (AUTO) 1.6 % (0-6); HEMATOCRIT 37.4 % (36.0-47.0); HEMOGLOBIN 12.8 g/dL (12.0-15.5); LYMPHOCYTES % (AUTO) 33.1 % (13-45); MEAN CORPUSCULAR HEMOGLOBIN 31.4 pg (27.0-33.4); MEAN CORPUSCULAR HGB CONC 34.3 g/dL (32.0-36.0); MEAN CORPUSCULAR VOLUME 92 fl (80-97); PLATELET COUNT 291 10^3/uL (150-450); RED BLOOD COUNT 4.08 10^6/uL (3.72-5.28); RED CELL DISTRIBUTION WIDTH 12.6 % (11.5-14.0); SEGMENTED NEUTROPHILS % (AUTO) 53.5 % (42-78); TOTAL CELLS COUNTED % (AUTO) 100 %; WHITE BLOOD COUNT 9.8 10^3/uL (4.0-10.5)
[2018-11-28 23:09] LABS: APPEARANCE,URINE CLEAR; BILIRUBIN,URINE NEGATIVE (NEGATIVE); COLOR,URINE YELLOW; GLUCOSE, URINE NEGATIVE (NEGATIVE); KETONES,URINE NEGATIVE (NEGATIVE); LEUKOCYTE ESTERASE,URINE NEGATIVE (NEGATIVE); NITRITE,URINE NEGATIVE (NEGATIVE); PROTEIN,URINE NEGATIVE (NEGATIVE); URINE SPECIFIC GRAVITY 1.016; UROBILINOGEN,URINE NEGATIVE mg/dL (<2.0)
[2018-11-28 23:12] LABS: INTERNATIONAL RATION (INR) 1.03; PROTHROMBIN TIME 13.5 SEC (11.4-15.4)
[2018-11-28 23:13] LABS: PARTIAL THROMBOPLASTIN TIME 28.7 SEC (23.5-35.8)
[2018-11-28 23:20] LABS: ALBUMIN 4.8 g/dL (3.5-5.0); ALKALINE PHOSPHATASE 50 U/L (38-126); ANION GAP 14 (5-19); ASPARTATE AMINO TRANSFERASE 43 U/L (14-36); BILIRUBIN,DIRECT 0.2 mg/dL (0.0-0.4); BILIRUBIN,TOTAL 0.2 mg/dL (0.2-1.3); BLOOD UREA NITROGEN 12 mg/dL (7-20); CALCIUM 9.8 mg/dL (8.4-10.2); CARBON DIOXIDE 21 mmol/L (22-30); CHLORIDE 103 mmol/L (98-107); GLUCOSE 100 mg/dL (75-110); POTASSIUM 4.3 mmol/L (3.6-5.0); TOTAL PROTEIN 7.7 g/dL (6.3-8.2)
[2018-11-28 23:32] LABS: CREATINE KINASE MB 0.36 ng/mL (<4.55)
[2018-11-28 23:37] LABS: TROPONIN I < 0.012 ng/mL
[2018-11-28 23:51] LABS: THYROID STIMULATING HORMONE 1.72 uIU/mL (0.47-4.68)
--- NOTE | 2018-11-29 00:51 | ER Document Report ---
ED General - General Chief Complaint: Chest Pain Stated Complaint: CHEST PAIN, DIZZINESS, HIGH HEART RATE Time Seen by Provider: 11/28/18 21:26 Primary Care Provider: EMMANUEL FRANKLIN MD [Primary Care Provider] - Follow up as needed TRAVEL OUTSIDE OF THE U.S. IN LAST 30 DAYS: No - HPI Context: 18-year-old female with a history of POTS, admission a month ago with rhabdomyolysis, presents with chest pain. Some intermittent chest pain now for the last several weeks. Apparently seen a resistor tester as an outpatient was told that she would be scheduled undergo a stress test. She describes vague pain that is more of a pulling feeling in her chest at times, last 10 to 20 seconds. Some equivocal shortness of breath. No real pleuritic component. No lower semi-pain or swelling. No personal history of venous thrombi embolism, she states her half brother had a DVT but he had testicular cancer. Does not smoke, no exogenous estrogen use. There is no family history of sudden in early age or coronary artery disease under the age of 30. Happened several x9 she had some associated tachycardia. 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 Currently pain-free at this time. Moderate intensity, sudden onset, nonradiating. Off-and-on over the last couple weeks but worse today. No other modifying factors, no other associated symptoms, no other provocative or palliative factors. - Related Data Allergies/Adverse Reactions: pomegranate Allergy (Verified 11/28/18 20:37) Past Medical History - Social History Smoking Status: Never Smoker Frequency of alcohol use: None Drug Abuse: None Family History: Hypertension, Malignancy - Testicular cancer in brother Patient has suicidal ideation: No Patient has homicidal ideation: No - Medical History Notes: Includes POTS - Past Medical History Cardiac Medical History: Denies: Hx Atrial Fibrillation, Hx Congestive Heart Failure, Hx Coronary Artery Disease, Hx Hypertension Pulmonary Medical History: Denies: Hx Asthma, Hx COPD Neurological Medical History: Denies: Hx Seizures Endocrine Medical History: Denies: Hx Diabetes Mellitus Type 1, Hx Hyperthyroidism, Hx Hypothyroidism Renal/ Medical History: Denies: Hx Peritoneal Dialysis GI Medical History: Denies: Hx Cirrhosis, Hx Crohn's Disease, Hx Hepatitis, Hx Ulcerative Colitis Musculoskeletal Medical History: Denies Hx Arthritis, Denies Hx Fibromyalgia, Denies Hx Gout Skin Medical History: Denies Hx Eczema, Denies Hx Psoriasis Infectious Medical History: Denies: Hx Hepatitis Review of Systems - Review of Systems Notes: Review of systems as in the history of present illness, otherwise negative x 10 systems. Physical Exam - Vital signs Vitals: Temp Pulse Resp BP Pulse Ox 98.7 F 117 H 16 127/78 H 96 11/28/18 20:41 11/28/18 20:41 11/28/18 20:41 11/28/18 20:41 11/28/18 20:41 - Notes Notes: General: Well developed . HEENT: Normocephalic, atraumatic. Pupils equal round reactive to light. No JVD. Chest: No trauma. Respiratory: Good air exchange, normal excursion. Cardiac: Regular rhythm. No murmurs or gallops. Abdomen: Soft, benign. Nondistended. Nontender. Back: No asymmetry or gross abnormality. Motor: Grossly normal power and tone. Neurologic: Alert, nonfocal. Cranial nerves II-12 are intact. Sensation intact. Vascular: Well perfused. Normal peripheral pulses. Skin: No petechiae or purpura. Course - Re-evaluation Re-evalutation: 11/29/18 00:52 18-year-old female presents with vague atypical chest pain in the aforementioned symptoms. Review of her records indicate an uncomplicated admission and evaluation for rhabdo. At no time did her troponin elevated. Patient presents with atypical symptoms. No substantial risk factors, I think the likelihood of ACS and is otherwise reasonly healthy 18-year-old female with atypical symptoms exceptionally low. Patient was evaluated by physician in triage ordered laboratories and imaging test. Reviewed current labs show unremarkable CBC, chemistries, LFTs, urine and UPT. Chest x-ray is unremarkable. Twelve-lead ECG shows no acute significant abnormality. On evaluation, discussed the low likelihood of venous trauma embolism with her. However, given her half-brothers history of DVT and her persistent tachycardia (which is likely explained by her POTS) I discussed proceeding with d-dimer screening. She is like to perform this and it is currently pending. Otherwise she remains asymptomatic in the emergency department. She already has close outpatient follow-up for continued work-up of her symptoms. 11/29/18 02:25 D-dimer is negative. Patient is pain-free, asymptomatic, discharged home as discussed. - Vital Signs Vital signs: Temp Pulse Resp BP Pulse Ox 98.7 F 117 H 16 127/78 H 96 11/28/18 20:41 11/28/18 20:41 11/28/18 20:41 11/28/18 20:41 11/28/18 20:41 - Laboratory Result Diagrams: 11/28/18 22:47 11/28/18 22:47 Laboratory results interpreted by me: 11/28/18 11/28/18 22:47 22:47 Carbon Dioxide 21 L AST 43 H Urine Blood SMALL H Discharge - Discharge Clinical Impression: Chest pain Qualifiers: Chest pain type: unspecified Qualified Code(s): R07.9 - Chest pain, unspecified Disposition: HOME, SELF-CARE Instructions: Chest Pain of Unclear Cause ([facility]) Referrals: EMMANUEL FRANKLIN MD [Primary Care Provider] - Follow up tomorrow
[2018-11-29 02:38] VITALS: BP 107/69
--- NOTE | 2018-11-29 10:27 | EKG REPORT ---
SEVERITY:- OTHERWISE NORMAL ECG - SINUS TACHYCARDIA : Confirmed by: Dorita Quach 29-Nov-2018 10:26:17
== END 2018-11-29 02:38 | disposition home or self-care (01) ==
LOC: ER 20:31
DX: R07.89 Other chest pain (principal); R42 Dizziness and giddiness
CPT/HCPCS: 36415; 71046; 80053; 81001; 81025; 82550; 82553; 83735; 84439; 84443; 84484; 85025; 85379; 85610; 85730; 93005; 93010; 99285

== ENCOUNTER → 2018-12-06 | Outpatient (CLI) | payer OTHER ==
--- NOTE | 2018-12-06 14:09 | RADIOLOGY REPORT (SQ) ---
EXAM DESCRIPTION: CT ABD/PELVIS NO ORAL OR IV COMPLETED DATE/TIME: 12/06/2018 10:30 am REASON FOR STUDY: (R10.9)UNSPECIFIED ABDOMINAL PAIN R10.9 UNSPECIFIED ABDOMINAL PAIN COMPARISON: None. TECHNIQUE: CT scan of the abdomen and pelvis performed without intravenous or oral contrast. Images reviewed with lung, soft tissue, and bone windows. Reconstructed coronal and sagittal MPR images revi ewed. All images stored on PACS. All CT scanners at this facility use dose modulation, iterative reconstruction, and/or weight based d osing when appropriate to reduce radiation dose to as low as reasonably achievable (ALARA). [facility]: Dose Right [facility]: CareDose [facility]: Dose Right [facility]: Teradose 4D [facility]: [employer] RADIATION DOSE: CT Rad equipment meets quality standard of care and radiation dose reduction techniq ues were employed. CTDIvol: 4.2 mGy. DLP: 206 mGy-cm.mGy. LIMITATIONS: None. FINDINGS: LOWER CHEST: No significant findings. No nodules or infiltrates. NON-CONTRASTED LIVER, SPLEEN, ADRENALS: Evaluation limited by lack of IV contrast. No identified sign ificant masses. PANCREAS: No masses. No peripancreatic inflammatory changes. GALLBLADDER: No identified stones by CT criteria. No inflammatory changes to suggest cholecystitis. RIGHT KIDNEY AND URETER: No suspicious masses. Assessment limited by lack of IV contrast. No signif icant calcifications. No hydronephrosis or hydroureter. LEFT KIDNEY AND URETER: No suspicious masses. Assessment limited by lack of IV contrast. No signifi cant calcifications. No hydronephrosis or hydroureter. AORTA AND RETROPERITONEUM: No aneurysm. No retroperitoneal masses or adenopathy. BOWEL AND PERITONEAL CAVITY: No obvious masses or inflammatory changes. No free fluid. APPENDIX: Normal. PELVIS, BLADDER, AND ABDOMINAL WALL:No abnormal masses. No free fluid. Bladder normal. BONES: No significant findings. OTHER: No other significant finding. IMPRESSION: NO SIGNIFICANT OR ACUTE PROCESS IN THE ABDOMEN OR PELVIS. COMMENT: Quality ID # [id number]: Final reports with documentation of one or more dose reduction techniques (e.g., Automated exposure control, adjustment of the mA and/or kV according to patient size, use of iterative reconstruction technique) TECHNICAL DOCUMENTATION: JOB ID: [id number] [employer]- All Rights Reserved Reading location - IP/workstation name: [email or web address]
== END ==
LOC: RAD 10:06
PROVIDERS: ATTEND Family Medicine Geriatric Medicine
DX: R10.9 Unspecified abdominal pain (principal)
CPT/HCPCS: 74176

== ENCOUNTER 2018-12-23 12:17 | Emergency (ER) | payer OTHER ==
--- NOTE | 2018-12-23 14:34 | ER Document Report ---
HPI - HPI Patient complains to provider of: UPPER BACK PAIN Time Seen by Provider: 12/23/18 14:24 Onset: Yesterday Onset/Duration: Sudden Quality of pain: Achy Severity: Moderate Pain Level: 3 Context: This 18-year-old female presents emergency department with complaints of bilateral back pain upper. Patient reports started hurting last night. She reports she was just sitting there and start hurting when she took a deep breath or cough. She reports she has not been coughing no fever no vomiting diarrhea. She reports 2 nights ago she was doing pull-ups but she did not fall or hurt her self. Denies past medical history of injury to the area. Denies pain with void. Patient does have a history of POTS, UTIs and rhabdomyolysis. Associated Symptoms: None Exacerbated by: Coughing, Deep breathing Relieved by: Denies Similar symptoms previously: No Recently seen / treated by doctor: No - CONSTITUTIONAL Constitutional: DENIES: Fever, Chills - REPRODUCTIVE Reproductive: DENIES: : Past Medical History - General Information source: Patient Last Menstrual Period: 12/04/18 - Social History Smoking Status: Never Smoker Cigarette use (# per day): No Frequency of alcohol use: None Drug Abuse: None Lives with: Family Family History: Hypertension, Malignancy - Testicular cancer in brother Patient has suicidal ideation: No Patient has homicidal ideation: No - Past Medical History Cardiac Medical History: Reports: Other - pots Denies: Hx Atrial Fibrillation, Hx Congestive Heart Failure, Hx Coronary Artery Disease, Hx Hypertension Pulmonary Medical History: Denies: Hx Asthma, Hx COPD Neurological Medical History: Denies: Hx Seizures Endocrine Medical History: Denies: Hx Diabetes Mellitus Type 1, Hx Hyperthyroidism, Hx Hypothyroidism Renal/ Medical History: Reports: Other - UTI- Sepsis. 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 IN LAST 30 DAYS: No - HEENT HEENT: Atraumatic, Normocephalic. negative: Conjuctival Injection - NECK Neck: Normal Inspection, Supple. negative: Lymphadenopathy-Left, Lymphadenopathy-Right - RESPIRATORY Respiratory: Breath Sounds Normal, No Respiratory Distress, Chest Non-Tender - CARDIOVASCULAR Cardiovascular: Regular Rate, Regular Rhythm - GI/ABDOMEN Gastrointestinal: Abdomen Soft, Abdomen Non-Tender - BACK Back: Normal Inspection - Patient complains of upper back bilateral pain. Reports increased pain with deep breath or coughing. Respiratory rate even unlabored no erythema no swelling no warmth no vertebral tenderness. negative: CVA Tenderness-Right, CVA Tenderness-Left - NEURO Level of Consciousness: Awake, Alert, Appropriate Motor/Sensory: No Motor Deficit - DERM Integumentary: Warm, Dry, No Rash Adult Front & Back Diagram: 1 - Patient reports pain increases with deep breath and coughing. 2 - Patient reports pain increases with deep breath and coughing Course - Re-evaluation Re-evalutation: 12/23/18 15:48 This 18-year-old female presents to the emergency department with upper back pain bilaterally. Denies trauma. Denies recent cough cold symptoms. Reports she was doing pull-ups on Saturday. She is reports she started hurting Saturday. Patient does have a history of rhabdomyolysis from working out in the gym. Labs ordered. 12/23/18 17:[address] neck negative. Chest x-ray negative. Patient instructed on all results. Instructed to rest no further work-out while she is hurting. She was also instructed to return to the emergency department for difficulty breathing fever concerns. She verbalized understanding to all instructions. 12/23/18 16:05 12/23/18 16:05 MCV 92 fl (80-97) 12/23/18 16:05 MCH 31.4 pg (27.0-33.4) 12/23/18 16:05 MCHC 34.3 g/dL (32.0-36.0) 12/23/18 16:05 RDW 12.2 % (11.5-14.0) 12/23/18 16:05 Seg Neutrophils % 57.4 % (42-78) 12/23/18 16:05 Chloride 104 mmol/L (98-107) 12/23/18 16:05 Carbon Dioxide 26 mmol/L (22-30) 12/23/18 16:05 Anion Gap 8 (5-19) 12/23/18 16:05 Est GFR ( Amer) > 60 (>60) 12/23/18 16:05 Glucose 123 mg/dL (75-110) H 12/23/18 16:05 Calcium 9.3 mg/dL (8.4-10.2) 12/23/18 16:05 Total Bilirubin 0.2 mg/dL (0.2-1.3) 12/23/18 16:05 AST 27 U/L (14-36) 12/23/18 16:05 Alkaline Phosphatase 44 U/L (38-126) 12/23/18 16:05 Total Protein 6.8 g/dL (6.3-8.2) 12/23/18 16:05 Albumin 4.2 g/dL (3.5-5.0) 12/23/18 16:05 Serum HCG, Qual NEGATIVE (NEGATIVE) 12/23/18 16:05 12/23/18 16:05 Creatine Kinase 99 Chest X-Ray 12/23/18 15:26 IMPRESSION: NO ACUTE RADIOGRAPHIC FINDING IN THE CHEST. 12/23/18 18:18 - Vital Signs Vital signs: Temp Pulse Resp BP Pulse Ox 97.7 F 93 16 119/72 98 12/23/18 12:21 12/23/18 12:21 12/23/18 12:21 12/23/18 12:21 12/23/18 12:21 - Laboratory Result Diagrams: 12/23/18 16:05 12/23/18 16:05 - Diagnostic Test Radiology reviewed: Image reviewed, Reports reviewed Discharge - Discharge Clinical Impression: Upper back pain Condition: Stable Disposition: HOME, SELF-CARE Instructions: Use of [id number] Ibuprofen ([facility]) Additional Instructions: *You have been evaluated for upper back pain *Take ibuprofen as indicated *cough and deep breathe at least once an hour *Rest *Follow up with a primary care provider within one week *Return to ED for worsening condition, changes, needs Referrals: EMMANUEL FRANKLIN MD [Primary Care Provider] - Follow up in 3-5 days
[2018-12-23 16:16] LABS: ABSOLUTE EOSINOPHILS # (AUTO) 0.1 10^3/uL (0.0-0.6); ABSOLUTE MONOCYTES (AUTO) 0.5 10^3/uL (0.1-1.4); ABSOLUTE NEUT (AUTO) 4.1 10^3/uL (1.7-8.2); BASOPHILS % (AUTO) 0.7 % (0-2); MEAN CORPUSCULAR HEMOGLOBIN 31.4 pg (27.0-33.4); TOTAL CELLS COUNTED % (AUTO) 100 %
[2018-12-23 16:22] LABS: ABSOLUTE BASOPHILS # (AUTO) 0.1 10^3/uL (0.0-0.2); ABSOLUTE LYMPHOCYTES (AUTO) 2.4 10^3/uL (0.5-4.7); EOSINOPHILS % (AUTO) 1.4 % (0-6); HEMATOCRIT 37.1 % (36.0-47.0); HEMOGLOBIN 12.7 g/dL (12.0-15.5); LYMPHOCYTES % (AUTO) 33.4 % (13-45); MEAN CORPUSCULAR HGB CONC 34.3 g/dL (32.0-36.0); MEAN CORPUSCULAR VOLUME 92 fl (80-97); MONOCYTES % (AUTO) 7.1 % (3-13); PLATELET COUNT 243 10^3/uL (150-450); RED BLOOD COUNT 4.05 10^6/uL (3.72-5.28); RED CELL DISTRIBUTION WIDTH 12.2 % (11.5-14.0); SEGMENTED NEUTROPHILS % (AUTO) 57.4 % (42-78); WHITE BLOOD COUNT 7.1 10^3/uL (4.0-10.5)
--- NOTE | 2018-12-23 16:22 | RADIOLOGY REPORT (SQ) ---
EXAM DESCRIPTION: CHEST 2 VIEWS COMPLETED DATE/TIME: 12/23/2018 4:05 pm REASON FOR STUDY: upper back pain COMPARISON: 11/28/2018 EXAM PARAMETERS: NUMBER OF VIEWS: two views TECHNIQUE: Digital Frontal and Lateral radiographic views of the chest acquired. RADIATION DOSE: NA LIMITATIONS: none FINDINGS: LUNGS AND PLEURA: No opacities, masses or pneumothorax. No pleural effusion. MEDIASTINUM AND HILAR STRUCTURES: No masses or contour abnormalities. HEART AND VASCULAR STRUCTURES: Heart normal size. No evidence for failure. BONES: No acute findings. HARDWARE: None in the chest. OTHER: No other significant finding. IMPRESSION: NO ACUTE RADIOGRAPHIC FINDING IN THE CHEST. TECHNICAL DOCUMENTATION: JOB ID: [id number] [employer]- All Rights Reserved Reading location - IP/workstation name: [email or web address]
[2018-12-23 16:34] LABS: ALBUMIN 4.2 g/dL (3.5-5.0); ALKALINE PHOSPHATASE 44 U/L (38-126); ANION GAP 8 (5-19); ASPARTATE AMINO TRANSFERASE 27 U/L (14-36); BILIRUBIN,DIRECT 0.1 mg/dL (0.0-0.4); BILIRUBIN,TOTAL 0.2 mg/dL (0.2-1.3); BLOOD UREA NITROGEN 10 mg/dL (7-20); CALCIUM 9.3 mg/dL (8.4-10.2); CARBON DIOXIDE 26 mmol/L (22-30); CHLORIDE 104 mmol/L (98-107); CREATINE KINASE 99 U/L (30-135); GLUCOSE 123 mg/dL (75-110); POTASSIUM 3.9 mmol/L (3.6-5.0); TOTAL PROTEIN 6.8 g/dL (6.3-8.2)
[2018-12-23 17:38] VITALS: BP 100/61
== END 2018-12-23 17:37 | disposition home or self-care (01) ==
LOC: ER 12:17
DX: M54.89 Other dorsalgia (principal)
CPT/HCPCS: 36415; 71046; 80053; 82550; 84703; 85025; 99283